=== PATIENT | male | born 1955 | race Caucasian/White ===

== ENCOUNTER 2018-06-21 15:55 | Inpatient (IN) | payer SELFPAY ==
[~2018-06-21] VITALS: Ht 190.5 cm; Wt 113.9 kg
[~2018-06-21 15:55] MED LIST: ALBU2.5V8 INH; AMLO5TAB10 PO; CETI10TA22 PO; CLOT15CR3 TP; FLUT9.9S NS; MONT10TA9 PO; TADA5TAB PO; VARE1TAB21 PO
[2018-06-21] MEDS ORDERED: methylPREDNISolone SOD SUCC PF 125 MG/2 ML VIAL. IV ONE (16:15)
[2018-06-21] MEDS ORDERED: IPRATRPIUM/ALBUTEROL 0.5/2.5MG 3 ML NEBU. NEB ONE (16:15)
[2018-06-21 16:20] LABS: BASO % 0 % (0-3); EOS % 0 % (0-3); HEMATOCRIT 50.3 % (39.0-53.0); HEMOGLOBIN 16.1 g/dL (13.0-17.5); LYMPH # 0.6 x10^3/uL (1.0-4.8); LYMPH % 7 % (24-48); MEAN CORPUSCULAR HEMOGLOBIN 32 pg (25-35); MEAN CORPUSCULAR HGB CONC 32 g/dL (31-37); MEAN CORPUSCULAR VOLUME 99 fL (79-100); MONO # 0.5 x10^3/uL (0.0-1.1); MONO % 5 % (0-9); NEUT # 8.1 x10^3uL (1.8-7.7); NEUT % 87 % (31-73); PLATELET COUNT 260 x10^3/uL (140-400); RED BLOOD COUNT 5.08 x10^6/uL (4.30-5.70); RED CELL DISTRIBUTION WIDTH 15.5 % (11.5-14.5); WHITE BLOOD COUNT 9.2 x10^3/uL (4.0-11.0)
[2018-06-21 16:33] LABS: CALCIUM 9.4 mg/dL (8.5-10.1); CREATININE 0.9 mg/dL (0.7-1.3); POTASSIUM 4.3 mmol/L (3.5-5.1)
[2018-06-21 16:38] LABS: ALBUMIN 3.6 g/dL (3.4-5.0); ALBUMIN/GLOBULIN RATIO 0.9 (1.0-1.7); TOTAL BILIRUBIN 1.2 mg/dL (0.2-1.0); TOTAL PROTEIN 7.8 g/dL (6.4-8.2)
[2018-06-21 16:44] LABS: % BANDS 2 % (0-9); % BASOS 1 % (0-3); % EOS 1 % (0-5); % LYMPHS 7 % (24-48); % MONOS 2 % (0-10); % MYELOS 1 % (0-0); % SEGS 86 % (35-66)
[2018-06-21 16:48] LABS: INFLUENZA A PATIENT NEGATIVE (NEGATIVE); INFLUENZA B PATIENT NEGATIVE (NEGATIVE)
[2018-06-21 16:48] LABS: PLT ESTIMATE ADEQUATE (ADEQUATE)
--- NOTE | 2018-06-21 17:01 | RAD ---
CHEST AP ONLY 4:43 PM Clinical indications: short of breath COMPARISON: October 14, 2015. Findings: There is a mild increase in the interstitium bilaterally. Cinthia B line's are seen within the left lateral costophrenic angle. The findings are consistent with mild acute interstitial pulmonary edema. No lung consolidation or pleural effusion or pneumothorax is seen. The heart size, pulmonary vasculature, mediastinum and both ever are unremarkable given rotation and AP magnification. Impression: Mild acute interstitial pulmonary edema. Electronically signed by: Antony Arguello MD (06/21/2018 4:58 PM) [facility]
[2018-06-21] MEDS ORDERED: FUROSEMIDE 100 MG/10 ML VIAL. IVP ONE (17:15)
--- NOTE | 2018-06-21 17:43 | PHYS DOC ---
Past Medical History Past Medical History: COPD, Hypertension Past Surgical History: No Surgical History Additional Information: QUIT 1.5 MONTHS AGO Alcohol Use: None Drug Use: None Adult General Chief Complaint Chief Complaint: SHORTNESS OF BREATH HPI HPI 63-year-old male with history of COPD and other medical problems presents from his primary care provider's office today with respiratory distress. Patient states he has progressively been declining over the last 6-8 weeks. However, he states over the last 24 hours he's been unable to even take 2 steps in the house. He does describe orthopnea. He denies any fever chills or sweats. He denies any hematemesis. Not had any chest pain. When he coughs he states occasionally productive however the sputum is clear. Today he showed up at his primary care provider's office and his oxygen saturation was in the mid 70s. Patient was still able to talk in full sentences there and refused an ambulance ride over. She was told that his oxygen saturation should be in the 88% range[] Review of Systems Review of Systems Constitutional: Denies fever or chills [] Eyes: Denies change in visual acuity, redness, or eye pain [] HENT: Denies nasal congestion or sore throat [] Respiratory: Per history of present illness[] Cardiovascular: No additional information not addressed in HPI [] GI: Denies abdominal pain, nausea, vomiting, bloody stools or diarrhea [] : Denies dysuria or hematuria [] Musculoskeletal: Some lower extremity swelling[] Integument: Denies rash or skin lesions [] Neurologic: Denies headache, focal weakness or sensory changes [] Endocrine: Denies polyuria or polydipsia [] All other systems were reviewed and found to be within normal limits, except as documented in this note. Current Medications Current Medications Current Medications Medications (Trade) Dose Ordered Sig/Melina Start Time Stop Time Status Last Admin Dose Admin Albuterol/ Ipratropium (Duoneb) 9 ml 1X ONCE 06/21/18 16:15 06/21/18 16:38 DC 06/21/18 16:16 9 ML Furosemide (Lasix) 80 mg 1X ONCE 06/21/18 17:15 06/21/18 17:18 DC Methylprednisolone Sodium Succinate (SOLU-Medrol 125MG VIAL) 125 mg 1X ONCE 06/21/18 16:15 06/21/18 16:38 DC 06/21/18 16:44 125 MG Allergies Allergies Allergies Coded Allergies Type Severity Reaction Last Updated Verified No Known Drug Allergies 06/21/18 No Physical Exam Physical Exam Constitutional: Well developed, well nourished, moderate respiratory distress, non-toxic appearance. [] HENT: Normocephalic, atraumatic, bilateral external ears normal, oropharynx moist, no oral exudates, nose normal. [] Eyes: PERRLA, EOMI, conjunctiva normal, no discharge. [] Neck: Normal range of motion, no tenderness, supple, no stridor. [] Cardiovascular: Scattered wheezes throughout both lungs with bibasilar rales[] Lungs & Thorax: Bilateral breath sounds clear to auscultation [] Abdomen: Bowel sounds normal, soft, no tenderness, no masses, no pulsatile masses. [] Skin: Warm, dry, no erythema, no rash. [] Back: No tenderness, no CVA tenderness. [] Extremities: Trace lower extremity edema. [] Neurologic: Alert and oriented X 3, normal motor function, normal sensory function, no focal deficits noted. [] Psychologic: Anxious[] Current Patient Data Vital Signs Vital Signs Date Time Temp Pulse Resp B/P (MAP) Pulse Ox O2 Delivery O2 Flow Rate FiO2 06/21/18 16:32 98.6 112 32 180/105 (130) 79 Nasal Cannula 4.0 98.6 Lab Values Laboratory Tests Test 06/21/18 16:12 06/21/18 16:19 White Blood Count 9.2 x10^3/uL (4.0-11.0) Red Blood Count 5.08 x10^6/uL (4.30-5.70) Hemoglobin 16.1 g/dL (13.0-17.5) Hematocrit 50.3 % (39.0-53.0) Mean Corpuscular Volume 99 fL (79-100) Mean Corpuscular Hemoglobin 32 pg (25-35) Mean Corpuscular Hemoglobin Concent 32 g/dL (31-37) Red Cell Distribution Width 15.5 % (11.5-14.5) H Platelet Count 260 x10^3/uL (140-400) Neutrophils (%) (Auto) 87 % (31-73) H Lymphocytes (%) (Auto) 7 % (24-48) L Monocytes (%) (Auto) 5 % (0-9) Eosinophils (%) (Auto) 0 % (0-3) Basophils (%) (Auto) 0 % (0-3) Neutrophils # (Auto) 8.1 x10^3uL (1.8-7.7) H Lymphocytes # (Auto) 0.6 x10^3/uL (1.0-4.8) L Monocytes # (Auto) 0.5 x10^3/uL (0.0-1.1) Eosinophils # (Auto) 0.0 x10^3/uL (0.0-0.7) Basophils # (Auto) 0.0 x10^3/uL (0.0-0.2) Segmented Neutrophils % 86 % (35-66) H Band Neutrophils % 2 % (0-9) Lymphocytes % 7 % (24-48) L Monocytes % 2 % (0-10) Eosinophils % 1 % (0-5) Basophils % 1 % (0-3) Myelocytes % 1 % (0-0) H Platelet Estimate Adequate (ADEQUATE) Sodium Level 146 mmol/L (136-145) H Potassium Level 4.3 mmol/L (3.5-5.1) Chloride Level 103 mmol/L (98-107) Carbon Dioxide Level 38 mmol/L (21-32) H Anion Gap 5 (6-14) L Blood Urea Nitrogen 20 mg/dL (8-26) Creatinine 0.9 mg/dL (0.7-1.3) Estimated GFR (Cockcroft-Gault) 85.0 BUN/Creatinine Ratio 22 (6-20) H Glucose Level 121 mg/dL (70-99) H Lactic Acid Level 1.2 mmol/L (0.4-2.0) Calcium Level 9.4 mg/dL (8.5-10.1) Total Bilirubin 1.2 mg/dL (0.2-1.0) H Aspartate Amino Transferase (AST) 26 U/L (15-37) Alanine Aminotransferase (ALT) 41 U/L (16-63) Alkaline Phosphatase 106 U/L (46-116) Troponin I Quantitative 0.133 ng/mL (0.000-0.055) QU-Htu-I-Type Natriuretic Peptide 2435 pg/mL (0-124) H Total Protein 7.8 g/dL (6.4-8.2) Albumin 3.6 g/dL (3.4-5.0) Albumin/Globulin Ratio 0.9 (1.0-1.7) L Influenza Type A Antigen Negative (NEGATIVE) Influenza Type B Antigen Negative (NEGATIVE) Laboratory Tests 06/21/18 16:12 Laboratory Tests 06/21/18 16:12 EKG EKG EKG: Sinus rhythm right bundle branch block repolarization abnormality no obvious ischemic ST-T changes[] Radiology/Procedures Radiology/Procedures [] Impressions: PROCEDURE: CHEST AP ONLY CHEST AP ONLY 4:43 PM Clinical indications: short of breath COMPARISON: October 14, 2015. Findings: There is a mild increase in the interstitium bilaterally. Cinthia B line's are seen within the left lateral costophrenic angle. The findings are consistent with mild acute interstitial pulmonary edema. No lung consolidation or pleural effusion or pneumothorax is seen. The heart size, pulmonary vasculature, mediastinum and both ever are unremarkable given rotation and AP magnification. Impression: Mild acute interstitial pulmonary edema. Course & Med Decision Making Course & Med Decision Making Pertinent Labs and Imaging studies reviewed. (See chart for details) [ED course: Evaluation reveals a 63-year-old male in moderate respiratory distress. His oxygen saturation was in the low 80s. We did put him on 6 L and got him to the low 90s but he decreased again. I believe that he has a mixed picture. I certainly feel that he has some component of COPD and was treated with back to back DuoNeb's and 125 Solu-Medrol. However his chest x-ray shows interstitial edema and his BNP is greater than 2400. Patient was also given 80 of Lasix to initiate diuresis. I spoke with Dr. Cantu who agreed to accept the patient for admission. We will also consult pulmonary and cardiology. CRITICAL CARE: Time spent was 35 minutes. This includes medical management, evaluation, reevaluation, discussion with consultants and family. Critical Care does NOT include time spent on separately billed procedures. ] Dragon Disclaimer Dragon Disclaimer This electronic medical record was generated, in whole or in part, using a voice recognition dictation system. Departure Departure Impression: Primary Impression: CHF exacerbation Additional Impression: COPD exacerbation Disposition: ADMITTED INPATIENT Admitting Physician: Patrick Cantu Condition: GUARDED Referrals: PATRICK CANTU MD (PCP) Problem Qualifiers Primary Impression: CHF exacerbation Heart failure type: systolic Qualified Codes: I50.23 - Acute on chronic systolic (congestive) heart failure WILD SUMNER DO Jun 21, 2018 17:43
--- NOTE | 2018-06-21 19:35 | EKG ---
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
[2018-06-21 19:45] VITALS: BP 135/87
[2018-06-21] MEDS ORDERED: ASCO500C9 PO (19:48)
[2018-06-21] MEDS ORDERED: MULT1TAB52 PO (19:48)
[2018-06-21] MEDS ORDERED: IBUP-1060 PO (19:48)
[2018-06-21] MEDS ORDERED: GUAI600T79 PO (19:48)
[2018-06-21] MEDS ORDERED: OMEG1CAP6 PO (19:48)
[2018-06-21] MEDS ORDERED: FUROSEMIDE 40 MG/4 ML VIAL. IVP ONE (20:00)
[2018-06-21 20:07] VITALS: BP 146/101
[2018-06-21] MEDS ORDERED: ALBUTEROL SULFATE 2.5 MG/3 ML NEBU. NEB PRN (21:00)
[2018-06-21] MEDS: VARENICLINE 0.5 MG TABLET. PO SCH (22:07)
[2018-06-21] MEDS: MONTELUKAST SODIUM 10 MG TABLET. PO SCH (22:07)
[2018-06-21] MEDS: ENOXAPARIN 40 MG/0.4 ML SYRINGE. SQ SCH (22:09)
[2018-06-21 23:23] VITALS: BP 121/81
[2018-06-22 03:04] VITALS: BP 139/82
[2018-06-22 03:54] LABS: BASO % 0 % (0-3); EOS % 0 % (0-3); HEMATOCRIT 49.1 % (39.0-53.0); HEMOGLOBIN 15.7 g/dL (13.0-17.5); LYMPH # 0.4 x10^3/uL (1.0-4.8); LYMPH % 5 % (24-48); MEAN CORPUSCULAR HEMOGLOBIN 32 pg (25-35); MEAN CORPUSCULAR HGB CONC 32 g/dL (31-37); MEAN CORPUSCULAR VOLUME 99 fL (79-100); MONO # 0.3 x10^3/uL (0.0-1.1); MONO % 4 % (0-9); NEUT # 6.9 x10^3uL (1.8-7.7); NEUT % 91 % (31-73); PLATELET COUNT 240 x10^3/uL (140-400); RED BLOOD COUNT 4.96 x10^6/uL (4.30-5.70); RED CELL DISTRIBUTION WIDTH 15.4 % (11.5-14.5); WHITE BLOOD COUNT 7.5 x10^3/uL (4.0-11.0)
[2018-06-22 04:17] LABS: ALBUMIN 3.4 g/dL (3.4-5.0); ALBUMIN/GLOBULIN RATIO 0.9 (1.0-1.7); CALCIUM 8.9 mg/dL (8.5-10.1); CREATININE 0.9 mg/dL (0.7-1.3); POTASSIUM 4.7 mmol/L (3.5-5.1); TOTAL BILIRUBIN 1.1 mg/dL (0.2-1.0); TOTAL PROTEIN 7.2 g/dL (6.4-8.2)
[2018-06-22 07:00] VITALS: BP 131/98
[2018-06-22] MEDS: IPRATRPIUM/ALBUTEROL 0.5/2.5MG 3 ML NEBU. NEB SCH ×4 (07:42→19:35)
--- NOTE | 2018-06-22 07:56 | RAD ---
Bilateral lower extremity venous doppler ultrasound History: Bilateral lower extremity swelling, CHF Comparison: None Findings: Multiple grayscale, color, and duplex spectral analysis sonographic images were acquired of the bilateral lower extremity veins to evaluate for the presence of DVT. There is normal phasicity. Normal compression, color-flow, and augmentation is demonstrated from the bilateral common femoral to the popliteal veins. There is normal color flow of the proximal greater saphenous and profunda femoris veins. There is normal color flow of segments of the calf veins. Impression: 1. There is no evidence of deep venous thrombosis from the bilateral common femoral to popliteal veins. Electronically signed by: Carlos Calvillo MD (06/22/2018 7:53 AM) [id number]
[2018-06-22] MEDS: VARENICLINE 0.5 MG TABLET. PO SCH (08:32)
[2018-06-22] MEDS: CETIRIZINE HCL 10 MG TABLET. PO SCH (08:32)
[2018-06-22] MEDS: MULTIVITAMIN with MINERAL TABLET. PO SCH (08:32)
[2018-06-22] MEDS: amLODIPine BESYLATE 5 MG TABLET PO SCH (08:33)
[2018-06-22] MEDS: FLUTICASONE 50MCG/NASAL SPRAY 16GM BOTTLE. NS SCH (08:33)
[2018-06-22] MEDS ORDERED: OMEGA-3 FATTY ACIDS/FISH OIL 1,000 MG CAPSULE. PO SCH (09:00)
[2018-06-22] MEDS ORDERED: ASCORBIC ACID 500 MG TABLET PO SCH (09:00)
[2018-06-22] MEDS ORDERED: CLOTRIMAZOLE/BETAMETH 1%-0.05% TOPICAL CREAM 15GM TUBE. TP SCH (09:00)
[2018-06-22 09:07] LABS: CHOLESTEROL/HDL RATIO 2.1
--- NOTE | 2018-06-22 09:19 | PDOC2 ---
JUNIOR PAEZ BOTTLE CARRIER 06/22/18 0919: CARDIAC CONSULT DATE OF CONSULT Date of Consult DATE: 06/22/18 TIME: 09:14 REASON FOR CONSULT Reason for Consult: CHF REFERRING PHYSICIAN Referring Physician: Dr. Stacy SOURCE Source: Chart review, Patient HISTORY OF PRESENT ILLNESS HISTORY OF PRESENT ILLNESS This is a 63 yo male who presented from Primary Care office secondary to shortness of breath and hypoxia. Oxygen saturation reportedly in the 70's and patient was referred to the ED for further evaluation and treatment. Patient reports history of COPD and chronic shortness of breath. Does not routinely go to see his primary care provide. Significant other at bedside reports he generally refuses to go to the doctor or follow up. Ran out of all medications about 2 weeks ago. Has been significantly short of breath with minimal exertion for the last couple weeks. Associated with orthopnea and LE edema. Worse the last week. Has been sleeping sitting up on the couch for the last week. Denies any chest pain, palpitations, dizziness, or diaphoresis. Quit smoking about a month ago due to dyspnea. PAST MEDICAL HISTORY Cardiovascular: HTN Pulmonary: COPD CENTRAL NERVOUS SYSTEM: Other (no pertinent positives ) GI: No pertinent hx Heme/Onc: No pertinent hx Hepatobiliary: No pertinent hx Psych: No pertinent hx Musculoskeletal: low back pain Rheumatologic: No pertinent hx Infectious disease: No pertinent hx ENT: No pertinent hx Renal/: No pertinent hx Endocrine: No pertinent hx PAST SURGICAL HISTORY Past Surgical History: No pertinent history FAMILY HISTORY Family History: Chronic Bronchitis, Hypertension SOCIAL HISTORY Smoke: Quit (1 month ago) ALCOHOL: none Drugs: None Lives: with Family CURRENT MEDICATIONS CURRENT MEDICATIONS Current Medications Medications (Trade) Dose Ordered Sig/Melina Route PRN Reason Start Time Stop Time Status Last Admin Dose Admin Albuterol/ Ipratropium (Duoneb) 9 ml 1X ONCE NEB 06/21/18 16:15 06/21/18 16:38 DC 06/21/18 16:16 Methylprednisolone Sodium Succinate (SOLU-Medrol 125MG VIAL) 125 mg 1X ONCE IV 06/21/18 16:15 06/21/18 16:38 DC 06/21/18 16:44 Furosemide (Lasix) 80 mg 1X ONCE IVP 06/21/18 20:00 06/21/18 20:01 DC 06/21/18 20:05 Albuterol/ Ipratropium (Duoneb) 3 ml RTQID NEB 06/22/18 08:00 06/22/18 07:42 Enoxaparin Sodium (Lovenox 40mg Syringe) 40 mg Q24H SQ 06/21/18 21:00 06/21/18 22:09 Amlodipine Besylate (Norvasc) 5 mg DAILY PO 06/22/18 09:00 06/22/18 08:33 Cetirizine HCl (ZyrTEC) 10 mg DAILY PO 06/22/18 09:00 06/22/18 08:32 Betamethasone/ Clotrimazole (Lotrisone) 1 jordan BID TP 06/22/18 09:00 06/22/18 08:33 Guaifenesin (Mucinex) 600 mg BID PO 06/21/18 22:00 06/22/18 08:32 Fish Oil (Fish Oil) 1,000 mg DAILY PO 06/22/18 09:00 06/22/18 08:32 Ascorbic Acid (Vitamin C) 1,000 mg DAILY PO 06/22/18 09:00 06/22/18 08:32 Fluticasone Propionate (Flonase) 2 spray DAILY NS 06/22/18 09:00 06/22/18 08:33 Montelukast Sodium (Singulair) 10 mg QHS PO 06/21/18 22:00 06/21/18 22:07 Multivitamins (Thera M Plus) 1 tab DAILY PO 06/22/18 09:00 06/22/18 08:32 Varenicline (Chantix) 1 mg BID PO 06/21/18 22:00 06/22/18 08:32 ALLERGIES ALLERGIES: Coded Allergies: No Known Drug Allergies (Unverified , 06/21/18) ROS Review of System 14 point ROS conducted with pertinent positives noted above in HPI. PHYSICAL EXAM General: Alert, Oriented X3, Cooperative, No acute distress HEENT: Atraumatic, Mucous membr. moist/pink Lungs: Clear to auscultation, Other (diminished throughout. Fine bibasilar crackles; on BiPAP) Heart: Regular rate, Other (distant heart tones) Abdomen: Soft, No tenderness Extremities: Other (1+ bilateral LE edema. ) Skin: Other (Bilateral LE erythema) Neuro: Normal speech, Sensation intact Psych/Mental Status: Mental status NL, Mood NL MUSCULOSKELETAL: Osteoarthritic changes both hands VITALS VITALS Vital Signs Date Time Temp Pulse Resp B/P (MAP) Pulse Ox O2 Delivery O2 Flow Rate FiO2 06/22/18 08:33 97 131/98 06/22/18 07:53 Bi-pap 06/22/18 07:42 94 5.0 06/22/18 07:00 98.1 20 98.1 LABS Lab: Laboratory Tests Test 06/21/18 16:12 06/21/18 16:19 06/21/18 22:10 06/22/18 03:45 White Blood Count 9.2 x10^3/uL (4.0-11.0) 7.5 x10^3/uL (4.0-11.0) Red Blood Count 5.08 x10^6/uL (4.30-5.70) 4.96 x10^6/uL (4.30-5.70) Hemoglobin 16.1 g/dL (13.0-17.5) 15.7 g/dL (13.0-17.5) Hematocrit 50.3 % (39.0-53.0) 49.1 % (39.0-53.0) Mean Corpuscular Volume 99 fL (79-100) 99 fL (79-100) Mean Corpuscular Hemoglobin 32 pg (25-35) 32 pg (25-35) Mean Corpuscular Hemoglobin Concent 32 g/dL (31-37) 32 g/dL (31-37) Red Cell Distribution Width 15.5 % (11.5-14.5) 15.4 % (11.5-14.5) Platelet Count 260 x10^3/uL (140-400) 240 x10^3/uL (140-400) Neutrophils (%) (Auto) 87 % (31-73) 91 % (31-73) Lymphocytes (%) (Auto) 7 % (24-48) 5 % (24-48) Monocytes (%) (Auto) 5 % (0-9) 4 % (0-9) Eosinophils (%) (Auto) 0 % (0-3) 0 % (0-3) Basophils (%) (Auto) 0 % (0-3) 0 % (0-3) Neutrophils # (Auto) 8.1 x10^3uL (1.8-7.7) 6.9 x10^3uL (1.8-7.7) Lymphocytes # (Auto) 0.6 x10^3/uL (1.0-4.8) 0.4 x10^3/uL (1.0-4.8) Monocytes # (Auto) 0.5 x10^3/uL (0.0-1.1) 0.3 x10^3/uL (0.0-1.1) Eosinophils # (Auto) 0.0 x10^3/uL (0.0-0.7) 0.0 x10^3/uL (0.0-0.7) Basophils # (Auto) 0.0 x10^3/uL (0.0-0.2) 0.0 x10^3/uL (0.0-0.2) Segmented Neutrophils % 86 % (35-66) Band Neutrophils % 2 % (0-9) Lymphocytes % 7 % (24-48) Monocytes % 2 % (0-10) Eosinophils % 1 % (0-5) Basophils % 1 % (0-3) Myelocytes % 1 % (0-0) Platelet Estimate Adequate (ADEQUATE) Sodium Level 146 mmol/L (136-145) 142 mmol/L (136-145) Potassium Level 4.3 mmol/L (3.5-5.1) 4.7 mmol/L (3.5-5.1) Chloride Level 103 mmol/L (98-107) 99 mmol/L (98-107) Carbon Dioxide Level 38 mmol/L (21-32) 36 mmol/L (21-32) Anion Gap 5 (6-14) 7 (6-14) Blood Urea Nitrogen 20 mg/dL (8-26) 19 mg/dL (8-26) Creatinine 0.9 mg/dL (0.7-1.3) 0.9 mg/dL (0.7-1.3) Estimated GFR (Cockcroft-Gault) 85.0 85.0 BUN/Creatinine Ratio 22 (6-20) 21 (6-20) Glucose Level 121 mg/dL (70-99) 144 mg/dL (70-99) Lactic Acid Level 1.2 mmol/L (0.4-2.0) Calcium Level 9.4 mg/dL (8.5-10.1) 8.9 mg/dL (8.5-10.1) Total Bilirubin 1.2 mg/dL (0.2-1.0) 1.1 mg/dL (0.2-1.0) Aspartate Amino Transf (AST/SGOT) 26 U/L (15-37) 28 U/L (15-37) Alanine Aminotransferase (ALT/SGPT) 41 U/L (16-63) 35 U/L (16-63) Alkaline Phosphatase 106 U/L (46-116) 92 U/L (46-116) Troponin I Quantitative 0.133 ng/mL (0.000-0.055) 0.115 ng/mL (0.000-0.055) 0.097 ng/mL (0.000-0.055) XI-Cen-S-Type Natriuretic Peptide 2435 pg/mL (0-124) Total Protein 7.8 g/dL (6.4-8.2) 7.2 g/dL (6.4-8.2) Albumin 3.6 g/dL (3.4-5.0) 3.4 g/dL (3.4-5.0) Albumin/Globulin Ratio 0.9 (1.0-1.7) 0.9 (1.0-1.7) Influenza Type A Antigen Negative (NEGATIVE) Influenza Type B Antigen Negative (NEGATIVE) Magnesium Level 2.0 mg/dL (1.8-2.4) Triglycerides Level 39 mg/dL (0-150) Cholesterol Level 127 mg/dL (0-200) LDL Cholesterol, Calculated 59 mg/dL (0-100) VLDL Cholesterol, Calculated 8 mg/dL (0-40) Non-HDL Cholesterol Calculated 67 mg/dL (0-129) HDL Cholesterol 60 mg/dL (40-60) Cholesterol/HDL Ratio 2.1 Thyroid Stimulating Hormone (TSH) 0.470 uIU/mL (0.358-3.74) ASSESSMENT/PLAN ASSESSMENT/PLAN 1. Acute on chronic hypoxic respiratory failure; secondary to acute HF and AE COPD. requiring BiPAP 2. Acute on chronic HF; CXR with pulm edema. Good UOP with IV Lasix in ED 3. Mild troponin elevation; peak 0.133. Most probably type II, demand ischemia in the setting of acute respiratory/heart failure. CP free 4. AE COPD 5. Malignant hypertension; now controlled 6. Noncompliance 7. Tobaccoism; recently quit Recommendations Add ASA Obtain echo to assess LV systolic function Diuresis with monitoring of labs Follow pulmonary recs Reinforced importance of medical compliance and follow up. Further recommendations pending echo BERNARD BLANDON MD 06/22/18 2658: CARDIAC CONSULT ASSESSMENT/PLAN ASSESSMENT/PLAN Pt. seen and examined. Agree with above [employer]STATE [employer]ER note. It is unclear if his COPD or diastolic HF caused this acute exacerbation Continue treatment of both. Needs further aggressive diuresis. Outpt stress testing. thanks. JUNIOR PAEZ APRN Jun 22, 2018 09:19 BERNARD BLANDON MD Jun 22, 2018 23:09
[2018-06-22 10:58] VITALS: BP 115/77
[2018-06-22] MEDS: ASPIRIN ENTERIC COATED 81 MG TABLET.DR. PO SCH (11:03)
[2018-06-22] MEDS: FUROSEMIDE 40 MG/4 ML VIAL. IVP SCH (11:03)
--- NOTE | 2018-06-22 11:26 | PDOC ---
Provider Note Provider Note H&P dictated. [phone] PATRICK CANTU MD Jun 22, 2018 11:26
--- NOTE | 2018-06-22 11:42 | CARD ---
MR#: [id number] Date of Study: 06/22/2018 Ordering Physician: AGGIE FELTON, Referring Physician: PATRICK CANTU, Tech: Teresa Sweet APPROVED REPORT EXAM: Two-dimensional and M-mode echocardiogram with Doppler and color Doppler. Other Information Quality : FairHR: 95bpm Rhythm : NSRTechnically limited study due to COPD INDICATION Dyspnea Congestive Heart Failure RISK FACTORS Hypertension 2D DIMENSIONS Left Atrium(2D)4.1 (1.6-4.0cm)IVSd1.4 (0.7-1.1cm) Aortic Root(2D)3.8 (2.0-3.7cm)LVDd5.1 (3.9-5.9cm) LVOT Diameter2.2 (1.8-2.4cm)PWd1.3 (0.7-1.1cm) LVDs3.8 (2.5-4.0cm)FS (%) 25.5 % SV61.4 mlLVEF(%)50.0 (>50%) Aortic Valve AoV Peak Hernan.140.2cm/sAoV VTI24.3cm AO Peak GR.7.9mmHgLVOT VTI 15.66cm AO Mean GR.4mmHg Mitral Valve MV E Ixquvdpi97.6cm/sMV E Peak Gr.61mmHg MV DECEL [id number] A Zrblydnk117.7cm/s E/A Ratio0.9 TDI Lateral E' P. V8.69cm/sMedial E' P. V7.08cm/s E/Lateral E'10.2E/Medial E'12.5 Tricuspid Valve TR P. Sextmxlh705ja/sRAP [id number] TR Peak Gr.32mmHg Pulmonary Vein S1 Cjcjozbl11.2cm/sS2 Yxwmghuv82.89cm/s D2 Ypxmmpjw07.9cm/sPVa fgwfcojo66bcov LEFT VENTRICLE The left ventricle is normal size. There is moderate concentric left ventricular hypertrophy. The lef t ventricualar systolic funtion is normal. The ejection fraction is estimated at 55%. There is normal LV segmental wall motion. Transmitral Doppler flow pattern is Grade I-abnormal relaxation pattern. RIGHT VENTRICLE The right ventricle is mildly to moderately dilated. There is normal right ventricular wall thickness . Systolic function is mildly reduced. ATRIA The left atrium size is normal. The right atrium is moderately dilated. The interatrial septum is int act with no evidence for an atrial septal defect or patent foramen ovale as noted on 2-D or Doppler i maging. AORTIC VALVE The aortic valve is normal in structure and function. Doppler and Color Flow revealed no significant aortic regurgitation. There is no significant aortic valvular stenosis. MITRAL VALVE The mitral valve is normal in structure and function. There is no evidence of mitral valve prolapse. There is no mitral valve stenosis. TRICUSPID VALVE The tricuspid valve is normal in structure and function. Doppler and Color Flow revealed trace tricus pid valve regurgitation noted with an estimated PAP of 47 mmHg. Doppler and Color Flow revealed moder ate pulmonary hypertension. There is no tricuspid valve stenosis. PULMONIC VALVE The pulmonic valve is not well visualized. Doppler and Color Flow revealed no pulmonic valvular regur gitation. GREAT VESSELS The aortic root is normal in size. The IVC is dilated and collapses <50% with inspiration. PERICARDIAL EFFUSION There is no evidence of significant pericardial effusion. Critical Notification Critical Value: No <Conclusion> Technically difficult study. The left ventricualar systolic funtion is normal. The ejection fraction is estimated at 55%. There is normal LV segmental wall motion. Trace tricuspid valve regurgitation noted with an estimated PAP of 47 mmHg. There is no evidence of significant pericardial effusion. Signed by : Rigo Cruz, Electronically Approved : 06/22/2018 11:40:56
--- NOTE | 2018-06-22 11:47 | NUR ---
GABBY responding to a referral regarding needs oxygen, CPAP at home, unable to afford. Spoke with pt and significant at bedside. Pt reported he does not have health insurance. SW informed pt it might cost him around $200/month to have 02 at home depending 02 needs and will have to provide [employer] company with his credit card number for first payment. Pt reported he is able to pay for 02. Pt will need 6 min walk to [facility] 02 need. RN notified. Will continue to follow.
--- NOTE | 2018-06-22 11:57 | HP ---
ADMIT DATE: 06/21/2018 HISTORY OF PRESENT ILLNESS: This 63-year-old male who has not been seen in the office for, maybe, a couple of years, showed up in the office saying that he was much more short of breath. In the office, his O2 sats were in 70s and up to 75%. He was placed on oxygen. The patient states that he has not been using any oxygen or CPAP at home. He has not been taking any medications. I tried to send the patient to the Emergency Room via ambulance, but the patient decided to go with his girlfriend in the car. In the Emergency Room, the patient was noted to be hypoxic and chest x-ray showed acute pulmonary edema, and the patient was placed on oxygen with BiPAP and admitted for further evaluation and management. SYSTEMS REVIEW: At present time, the patient does admit to feeling better after getting oxygen. He has been admitting symptoms such as weakness, dyspnea, has cough with clear mucus. Denies any swelling of the legs, abdominal pain, nausea, vomiting, diarrhea, constipation. He is not a good historian, likely because of his hypoxia in the office. Other systems reviewed and are negative. PAST MEDICAL HISTORY: The patient was last admitted here in 2016. He is known to have history of COPD, dyspnea, noncompliance, hypertension, hypoxic respiratory failure, chronic obstructive pulmonary disease, hypertension, fungal skin infection, COPD, likely obstructive sleep apnea. ALLERGIES: None known any. MEDICATIONS: None at home. FAMILY HISTORY: Father had cancer of the lung. SOCIAL HISTORY: Past history of smoking, quit about 1-1/2 months ago. No history of alcoholism or drug use. PAST SURGICAL HISTORY: No significant surgery. PHYSICAL EXAMINATION: VITAL SIGNS: Temperature 98.1, pulse 97 per minute, respirations 20 per minute, blood pressure 131/98 mmHg. GENERAL: The patient is on BiPAP, in mild respiratory distress. EYES: Pupils reacting to light. Conjunctivae pale. Sclerae muddy. HEENT: Unremarkable. NECK: Supple. JVP normal. No thyromegaly. Trachea midline. LUNGS: Decreased breath sounds at bases. Moderate tachypnea. CARDIOVASCULAR: S1, S2 regular. ABDOMEN: Soft, nontender, no guarding, no rigidity. Abdomen is obese. Bowel sounds present. RECTAL: Not done. EXTREMITIES: No edema, no cyanosis, no calf tenderness. CENTRAL NERVOUS SYSTEM: Alert, forgetful, weak. No acute changes noted. LABORATORY FINDINGS: Sodium 142, potassium 4.7, BUN is 19, creatinine 0.9, glucose 144, troponin 0.115 and 0.097, albumin is 3.4, magnesium is 2. TSH is 0.470. LDL cholesterol is 59, HDL 60. WBC count 9.2, hemoglobin 16.1, platelet count is 260,000. IMPRESSION: 1. Acute hypoxic respiratory failure. 2. Acute pulmonary edema, multifactorial, likely due to acute diastolic heart failure. 3. Likely pulmonary hypertension. 4. Chronic obstructive pulmonary disease exacerbation. 5. Obesity. 6. Hypertension. 7. Mixed hyperlipidemia. 8. The patient has a skin candidiasis, which is quite extensive in both groins as well as in lower extremities and back. PLAN: Consult Dr. Guallpa for pulmonary evaluation and management, Dr. Ortega for cardiology evaluation and management. The patient is now on BiPAP. The patient was given IV Lasix in the Emergency Room. He is slowly improving. Condition and treatment discussed with the patient and his girlfriend. Start nystatin powder to be applied topically to the areas in groin and because of the extensive skin fungal infection, I will put him on oral Diflucan. Side effects including those on the heart discussed with the patient and the family. Prognosis of this patient is extremely poor. I have reiterated to him about the importance of keeping his oxygen saturation above 90% and take his medications and use CPAP regularly. For details, please review the orders. PATRICK CANTU MD DR: MAVERICK/clifford JOB#: [id number] / [id number]
[2018-06-22] MEDS ORDERED: FLUCONAZOLE 100 MG TABLET. PO SCH (12:00)
[2018-06-22] MEDS: NYSTATIN TOPICAL POWDER 15GM BOTTLE. TP SCH ×2 (12:02→22:35)
[2018-06-22 15:00] VITALS: BP 121/88
--- NOTE | 2018-06-22 15:29 | PDOC ---
PULMONARY PROGRESS NOTES Vitals Vital Signs Date Time Temp Pulse Resp B/P (MAP) Pulse Ox O2 Delivery O2 Flow Rate FiO2 06/22/18 15:07 94 BiPAP/CPAP 06/22/18 10:58 97.9 86 20 115/77 (90) 97.9 06/22/18 07:42 5.0 Labs Laboratory Tests Test 06/21/18 16:12 06/21/18 16:19 06/21/18 22:10 06/22/18 03:45 White Blood Count 9.2 x10^3/uL (4.0-11.0) 7.5 x10^3/uL (4.0-11.0) Red Blood Count 5.08 x10^6/uL (4.30-5.70) 4.96 x10^6/uL (4.30-5.70) Hemoglobin 16.1 g/dL (13.0-17.5) 15.7 g/dL (13.0-17.5) Hematocrit 50.3 % (39.0-53.0) 49.1 % (39.0-53.0) Mean Corpuscular Volume 99 fL (79-100) 99 fL (79-100) Mean Corpuscular Hemoglobin 32 pg (25-35) 32 pg (25-35) Mean Corpuscular Hemoglobin Concent 32 g/dL (31-37) 32 g/dL (31-37) Red Cell Distribution Width 15.5 % (11.5-14.5) 15.4 % (11.5-14.5) Platelet Count 260 x10^3/uL (140-400) 240 x10^3/uL (140-400) Neutrophils (%) (Auto) 87 % (31-73) 91 % (31-73) Lymphocytes (%) (Auto) 7 % (24-48) 5 % (24-48) Monocytes (%) (Auto) 5 % (0-9) 4 % (0-9) Eosinophils (%) (Auto) 0 % (0-3) 0 % (0-3) Basophils (%) (Auto) 0 % (0-3) 0 % (0-3) Neutrophils # (Auto) 8.1 x10^3uL (1.8-7.7) 6.9 x10^3uL (1.8-7.7) Lymphocytes # (Auto) 0.6 x10^3/uL (1.0-4.8) 0.4 x10^3/uL (1.0-4.8) Monocytes # (Auto) 0.5 x10^3/uL (0.0-1.1) 0.3 x10^3/uL (0.0-1.1) Eosinophils # (Auto) 0.0 x10^3/uL (0.0-0.7) 0.0 x10^3/uL (0.0-0.7) Basophils # (Auto) 0.0 x10^3/uL (0.0-0.2) 0.0 x10^3/uL (0.0-0.2) Segmented Neutrophils % 86 % (35-66) Band Neutrophils % 2 % (0-9) Lymphocytes % 7 % (24-48) Monocytes % 2 % (0-10) Eosinophils % 1 % (0-5) Basophils % 1 % (0-3) Myelocytes % 1 % (0-0) Platelet Estimate Adequate (ADEQUATE) Sodium Level 146 mmol/L (136-145) 142 mmol/L (136-145) Potassium Level 4.3 mmol/L (3.5-5.1) 4.7 mmol/L (3.5-5.1) Chloride Level 103 mmol/L (98-107) 99 mmol/L (98-107) Carbon Dioxide Level 38 mmol/L (21-32) 36 mmol/L (21-32) Anion Gap 5 (6-14) 7 (6-14) Blood Urea Nitrogen 20 mg/dL (8-26) 19 mg/dL (8-26) Creatinine 0.9 mg/dL (0.7-1.3) 0.9 mg/dL (0.7-1.3) Estimated GFR (Cockcroft-Gault) 85.0 85.0 BUN/Creatinine Ratio 22 (6-20) 21 (6-20) Glucose Level 121 mg/dL (70-99) 144 mg/dL (70-99) Lactic Acid Level 1.2 mmol/L (0.4-2.0) Calcium Level 9.4 mg/dL (8.5-10.1) 8.9 mg/dL (8.5-10.1) Total Bilirubin 1.2 mg/dL (0.2-1.0) 1.1 mg/dL (0.2-1.0) Aspartate Amino Transf (AST/SGOT) 26 U/L (15-37) 28 U/L (15-37) Alanine Aminotransferase (ALT/SGPT) 41 U/L (16-63) 35 U/L (16-63) Alkaline Phosphatase 106 U/L (46-116) 92 U/L (46-116) Troponin I Quantitative 0.133 ng/mL (0.000-0.055) 0.115 ng/mL (0.000-0.055) 0.097 ng/mL (0.000-0.055) WN-Nqo-I-Type Natriuretic Peptide 2435 pg/mL (0-124) Total Protein 7.8 g/dL (6.4-8.2) 7.2 g/dL (6.4-8.2) Albumin 3.6 g/dL (3.4-5.0) 3.4 g/dL (3.4-5.0) Albumin/Globulin Ratio 0.9 (1.0-1.7) 0.9 (1.0-1.7) Influenza Type A Antigen Negative (NEGATIVE) Influenza Type B Antigen Negative (NEGATIVE) Magnesium Level 2.0 mg/dL (1.8-2.4) Triglycerides Level 39 mg/dL (0-150) Cholesterol Level 127 mg/dL (0-200) LDL Cholesterol, Calculated 59 mg/dL (0-100) VLDL Cholesterol, Calculated 8 mg/dL (0-40) Non-HDL Cholesterol Calculated 67 mg/dL (0-129) HDL Cholesterol 60 mg/dL (40-60) Cholesterol/HDL Ratio 2.1 Thyroid Stimulating Hormone (TSH) 0.470 uIU/mL (0.358-3.74) Laboratory Tests Test 06/21/18 16:12 06/21/18 16:19 06/21/18 22:10 06/22/18 03:45 White Blood Count 9.2 x10^3/uL (4.0-11.0) 7.5 x10^3/uL (4.0-11.0) Red Blood Count 5.08 x10^6/uL (4.30-5.70) 4.96 x10^6/uL (4.30-5.70) Hemoglobin 16.1 g/dL (13.0-17.5) 15.7 g/dL (13.0-17.5) Hematocrit 50.3 % (39.0-53.0) 49.1 % (39.0-53.0) Mean Corpuscular Volume 99 fL (79-100) 99 fL (79-100) Mean Corpuscular Hemoglobin 32 pg (25-35) 32 pg (25-35) Mean Corpuscular Hemoglobin Concent 32 g/dL (31-37) 32 g/dL (31-37) Red Cell Distribution Width 15.5 % (11.5-14.5) 15.4 % (11.5-14.5) Platelet Count 260 x10^3/uL (140-400) 240 x10^3/uL (140-400) Neutrophils (%) (Auto) 87 % (31-73) 91 % (31-73) Lymphocytes (%) (Auto) 7 % (24-48) 5 % (24-48) Monocytes (%) (Auto) 5 % (0-9) 4 % (0-9) Eosinophils (%) (Auto) 0 % (0-3) 0 % (0-3) Basophils (%) (Auto) 0 % (0-3) 0 % (0-3) Neutrophils # (Auto) 8.1 x10^3uL (1.8-7.7) 6.9 x10^3uL (1.8-7.7) Lymphocytes # (Auto) 0.6 x10^3/uL (1.0-4.8) 0.4 x10^3/uL (1.0-4.8) Monocytes # (Auto) 0.5 x10^3/uL (0.0-1.1) 0.3 x10^3/uL (0.0-1.1) Eosinophils # (Auto) 0.0 x10^3/uL (0.0-0.7) 0.0 x10^3/uL (0.0-0.7) Basophils # (Auto) 0.0 x10^3/uL (0.0-0.2) 0.0 x10^3/uL (0.0-0.2) Segmented Neutrophils % 86 % (35-66) Band Neutrophils % 2 % (0-9) Lymphocytes % 7 % (24-48) Monocytes % 2 % (0-10) Eosinophils % 1 % (0-5) Basophils % 1 % (0-3) Myelocytes % 1 % (0-0) Platelet Estimate Adequate (ADEQUATE) Sodium Level 146 mmol/L (136-145) 142 mmol/L (136-145) Potassium Level 4.3 mmol/L (3.5-5.1) 4.7 mmol/L (3.5-5.1) Chloride Level 103 mmol/L (98-107) 99 mmol/L (98-107) Carbon Dioxide Level 38 mmol/L (21-32) 36 mmol/L (21-32) Anion Gap 5 (6-14) 7 (6-14) Blood Urea Nitrogen 20 mg/dL (8-26) 19 mg/dL (8-26) Creatinine 0.9 mg/dL (0.7-1.3) 0.9 mg/dL (0.7-1.3) Estimated GFR (Cockcroft-Gault) 85.0 85.0 BUN/Creatinine Ratio 22 (6-20) 21 (6-20) Glucose Level 121 mg/dL (70-99) 144 mg/dL (70-99) Lactic Acid Level 1.2 mmol/L (0.4-2.0) Calcium Level 9.4 mg/dL (8.5-10.1) 8.9 mg/dL (8.5-10.1) Total Bilirubin 1.2 mg/dL (0.2-1.0) 1.1 mg/dL (0.2-1.0) Aspartate Amino Transf (AST/SGOT) 26 U/L (15-37) 28 U/L (15-37) Alanine Aminotransferase (ALT/SGPT) 41 U/L (16-63) 35 U/L (16-63) Alkaline Phosphatase 106 U/L (46-116) 92 U/L (46-116) Troponin I Quantitative 0.133 ng/mL (0.000-0.055) 0.115 ng/mL (0.000-0.055) 0.097 ng/mL (0.000-0.055) UE-Jsm-Z-Type Natriuretic Peptide 2435 pg/mL (0-124) Total Protein 7.8 g/dL (6.4-8.2) 7.2 g/dL (6.4-8.2) Albumin 3.6 g/dL (3.4-5.0) 3.4 g/dL (3.4-5.0) Albumin/Globulin Ratio 0.9 (1.0-1.7) 0.9 (1.0-1.7) Influenza Type A Antigen Negative (NEGATIVE) Influenza Type B Antigen Negative (NEGATIVE) Magnesium Level 2.0 mg/dL (1.8-2.4) Triglycerides Level 39 mg/dL (0-150) Cholesterol Level 127 mg/dL (0-200) LDL Cholesterol, Calculated 59 mg/dL (0-100) VLDL Cholesterol, Calculated 8 mg/dL (0-40) Non-HDL Cholesterol Calculated 67 mg/dL (0-129) HDL Cholesterol 60 mg/dL (40-60) Cholesterol/HDL Ratio 2.1 Thyroid Stimulating Hormone (TSH) 0.470 uIU/mL (0.358-3.74) Medications Active Scripts Medications Dose Route/Sig Max Daily Dose Days Date Category Ibuprofen 800 Mg Tablet 800 Mg PO PRN Q6HRS PRN 06/21/18 Reported Vitamin C (Ascorbic Acid) 500 Mg Capsule 1,000 Mg PO DAILY 06/21/18 Reported Multivitamins (Multivitamin) 1 Each Tablet 1 Tab PO DAILY 06/21/18 Reported Fish Oil 1,000 Mg Capsule ([place]-3 Fatty Acids/Fish Oil) 1 Each Capsule 1 Each PO DAILY 06/21/18 Reported Guaifenesin 600 Mg Tablet.er 600 Mg PO BID 06/21/18 Reported Flonase Allergy Relief (Fluticasone Propionate) 9.9 Ml [place].susp 2 Sprays NS DAILY 12/23/15 Reported Chantix (Varenicline Tartrate) 1 Mg Tablet 1 Mg PO BID 12/23/15 Reported Cialis (Tadalafil) 5 Mg Tablet 1 Tab PO DAILY 12/23/15 Reported Lotrisone Cream (Clotrimazole/Betamethasone Dip) 15 Gm Cream..g. 1 Becky TP BID 12/23/15 Reported Proair Hfa Inhaler (Albuterol Sulfate) 8.5 Gm Hfa.aer.ad 1 Puff INH PRN Q6HRS PRN 12/23/15 Reported Zyrtec (Cetirizine Hcl) 10 Mg Tablet 1 Tab PO DAILY 12/23/15 Reported Montelukast Sodium Tablet (Montelukast Sodium) 10 Mg Tablet 1 Tab PO DAILY 12/23/15 Reported Amlodipine Besylate 5 Mg Tablet 5 Mg PO DAILY 12/23/15 Reported Impression . FULL NOTE DICTATED THANKS CATRACHITO SHIRLEY MD Jun 22, 2018 15:29
[2018-06-22] MEDS: predniSONE 20 MG TABLET PO SCH (16:10)
[2018-06-22 19:00] VITALS: BP 114/74
[2018-06-22] MEDS: ENOXAPARIN 40 MG/0.4 ML SYRINGE. SQ SCH (22:29)
[2018-06-22] MEDS: MONTELUKAST SODIUM 10 MG TABLET. PO SCH (22:29)
[2018-06-22 23:00] VITALS: BP 101/77
[2018-06-23 00:12] LABS: HEMOGLOBIN A1C 6.4 % (4.8-5.6)
[2018-06-23 03:00] VITALS: BP 115/82
[2018-06-23 05:09] LABS: BASO % 0 % (0-3); EOS % 0 % (0-3); HEMATOCRIT 45.2 % (39.0-53.0); HEMOGLOBIN 14.5 g/dL (13.0-17.5); LYMPH # 0.7 x10^3/uL (1.0-4.8); LYMPH % 8 % (24-48); MEAN CORPUSCULAR HEMOGLOBIN 31 pg (25-35); MEAN CORPUSCULAR HGB CONC 32 g/dL (31-37); MEAN CORPUSCULAR VOLUME 98 fL (79-100); MONO # 0.7 x10^3/uL (0.0-1.1); MONO % 8 % (0-9); NEUT # 7.4 x10^3uL (1.8-7.7); NEUT % 84 % (31-73); PLATELET COUNT 280 x10^3/uL (140-400); RED BLOOD COUNT 4.63 x10^6/uL (4.30-5.70); WHITE BLOOD COUNT 8.8 x10^3/uL (4.0-11.0)
--- NOTE | 2018-06-23 05:30 | CONS ---
DATE OF CONSULTATION: 06/22/2018 ATTENDING PHYSICIAN: Homero Merchant M.D. CONSULTING PHYSICIAN: Catrachito Shirley M.D. REASON FOR CONSULTATION: The patient seen in Pulmonary consultation at the request of Dr. Merchant for abnormal x-ray, increasing shortness of breath. HISTORY OF PRESENT ILLNESS: The patient is a 63-year-old male who smokes apparently, quit a month ago; uses Spiriva at home; increasing shortness of breath over the last 2-3 weeks. He normally does not see a physician. He has not seen Dr. Merchant for several years. He was found to have O2 saturation in the Emergency Room at 70%. He was placed on oxygen. He is currently on BiPAP. He reports no fever, chills or night sweats. No hemoptysis. I reviewed his x-ray, which revealed evidence of vascular congestion. His V/Q scan of the lower extremities revealed no evidence of DVT. His white count was not elevated. Influenza screen was negative. His BNP was elevated. His echocardiogram revealed ejection fraction of 55%, pulmonary artery pressure was elevated. The patient has a cough productive of discolored sputum. PAST MEDICAL HISTORY: 1. Tobacco dependence, apparently in remission for the past month. 2. COPD, normally uses Spiriva, apparently he gets Spiriva from [place]. 3. Hypertension. 4. Prior history of skin fungal infection. 5. No history of coronary artery disease. PAST SURGICAL HISTORY: No recent major surgeries. ALLERGIES: No known drug allergies. 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 Quit tobacco a month ago. No history of alcoholism. FAMILY HISTORY: Noncontributory. REVIEW OF SYSTEMS: As indicated above, otherwise, a 10-point system was reviewed and negative. PHYSICAL EXAMINATION: VITAL SIGNS: Stable. O2 saturation greater than 92% and currently on BiPAP. HEENT: Eyes, the sclerae were nonicteric. NECK: Jugular venous distention could not be assessed secondary to body habitus. CHEST: Full expansion. LUNGS: Crackles throughout both lung barr. CARDIOVASCULAR: Regular rate and rhythm with S1 and S2. No S3. ABDOMEN: Soft, nontender and nondistended. EXTREMITIES: No clubbing or cyanosis. Minimal edema. NEUROLOGICAL: The patient was awake, alert and following commands. A detailed neuro exam was not performed. LABORATORY DATA: Chest x-ray and labs as indicated above. IMPRESSION: 1. Acute hypoxemic respiratory failure. 2. Mfylf-cw-qygsbhc diastolic heart failure. 3. Acute exacerbation of chronic obstructive pulmonary disease. 4. Suspect obstructive sleep apnea. 5. Secondary pulmonary hypertension. 6. Tobacco dependence, in remission. 7. Suspect severe chronic obstructive pulmonary disease. 8. Noncompliance with previous followup with Dr. Merchant. PLAN: 1. Continue current support with BiPAP. The patient currently on 08/10 with a rate of 12, FiO2 was at 35% and he started off on 40%. 2. Diurese. 3. Consult Cardiology, already performed. Follow their recommendation. 4. Outpatient polysomnogram. 5. The patient instructed on the importance of discontinuing tobacco use. 6. Steroids. 7. No need for antibiotics. I do appreciate the privilege in sharing in the patient's care. CATRACHITO SHIRLEY MD DR: RYAN/clifford JOB#: [id number] / [id number]
[2018-06-23 05:45] LABS: ALBUMIN/GLOBULIN RATIO 0.8 (1.0-1.7); CALCIUM 8.7 mg/dL (8.5-10.1); CREATININE 1.1 mg/dL (0.7-1.3); GFR 67.4; MAGNESIUM 1.9 mg/dL (1.8-2.4); POTASSIUM 4.1 mmol/L (3.5-5.1); TOTAL BILIRUBIN 0.6 mg/dL (0.2-1.0); TOTAL PROTEIN 6.9 g/dL (6.4-8.2)
[2018-06-23 07:00] VITALS: BP 94/54
[2018-06-23] MEDS: IPRATRPIUM/ALBUTEROL 0.5/2.5MG 3 ML NEBU. NEB SCH ×4 (07:42→19:29)
--- NOTE | 2018-06-23 07:51 | NUR ---
Patient sitting at bedside visiting with and drinking coffee, in no respiratory distress, but oxygen saturation 86% on 3 liters O2 per NC. Oxygen increased to 4 liters without change in oxygen saturation. RT call for breathing treatment, patient now 93% on 4 liters O2 per NC after breathing treatment. Patient blood pressure 94/52, pulse 100 sitting up, patient denies weakness, dizziness or any symptoms. Continue to monitor and notify MD. Will hold Norvasc and Lasix for now. Patient and verb. understanding POC.
[2018-06-23] MEDS: FLUTICASONE 50MCG/NASAL SPRAY 16GM BOTTLE. NS SCH (08:44)
[2018-06-23] MEDS: MULTIVITAMIN with MINERAL TABLET. PO SCH (08:44)
[2018-06-23] MEDS: predniSONE 20 MG TABLET PO SCH (08:44)
[2018-06-23] MEDS: CETIRIZINE HCL 10 MG TABLET. PO SCH (08:45)
[2018-06-23] MEDS: NYSTATIN TOPICAL POWDER 15GM BOTTLE. TP SCH ×2 (08:45→20:50)
[2018-06-23] MEDS: ASPIRIN ENTERIC COATED 81 MG TABLET.DR. PO SCH (08:45)
[2018-06-23] MEDS: FLUCONAZOLE 100 MG TABLET. PO SCH (08:49)
[2018-06-23] MEDS: amLODIPine BESYLATE 5 MG TABLET PO SCH (09:00)
[2018-06-23] MEDS: FUROSEMIDE 40 MG/4 ML VIAL. IVP SCH ×2 (09:00→13:16)
--- NOTE | 2018-06-23 09:23 | PDOC ---
PULMONARY PROGRESS NOTES Subjective PT BETTER LESS SOA Vitals Vital Signs Date Time Temp Pulse Resp B/P (MAP) Pulse Ox O2 Delivery O2 Flow Rate FiO2 06/23/18 08:00 Bi-pap 4.0 06/23/18 07:50 93 06/23/18 07:00 98.1 80 19 94/54 (67) 98.1 ROS: No Nausea, No Chest Pain, No Abdominal Pain, No Increase Cough Lungs: Clear Cardiovascular: S1, S2 Abdomen: Soft Neuro Exam: Alert Extremities: No Edema Skin: Warm Labs Laboratory Tests Test 06/21/18 16:12 06/21/18 16:19 06/21/18 22:10 06/22/18 03:45 White Blood Count 9.2 x10^3/uL (4.0-11.0) 7.5 x10^3/uL (4.0-11.0) Red Blood Count 5.08 x10^6/uL (4.30-5.70) 4.96 x10^6/uL (4.30-5.70) Hemoglobin 16.1 g/dL (13.0-17.5) 15.7 g/dL (13.0-17.5) Hematocrit 50.3 % (39.0-53.0) 49.1 % (39.0-53.0) Mean Corpuscular Volume 99 fL (79-100) 99 fL (79-100) Mean Corpuscular Hemoglobin 32 pg (25-35) 32 pg (25-35) Mean Corpuscular Hemoglobin Concent 32 g/dL (31-37) 32 g/dL (31-37) Red Cell Distribution Width 15.5 % (11.5-14.5) 15.4 % (11.5-14.5) Platelet Count 260 x10^3/uL (140-400) 240 x10^3/uL (140-400) Neutrophils (%) (Auto) 87 % (31-73) 91 % (31-73) Lymphocytes (%) (Auto) 7 % (24-48) 5 % (24-48) Monocytes (%) (Auto) 5 % (0-9) 4 % (0-9) Eosinophils (%) (Auto) 0 % (0-3) 0 % (0-3) Basophils (%) (Auto) 0 % (0-3) 0 % (0-3) Neutrophils # (Auto) 8.1 x10^3uL (1.8-7.7) 6.9 x10^3uL (1.8-7.7) Lymphocytes # (Auto) 0.6 x10^3/uL (1.0-4.8) 0.4 x10^3/uL (1.0-4.8) Monocytes # (Auto) 0.5 x10^3/uL (0.0-1.1) 0.3 x10^3/uL (0.0-1.1) Eosinophils # (Auto) 0.0 x10^3/uL (0.0-0.7) 0.0 x10^3/uL (0.0-0.7) Basophils # (Auto) 0.0 x10^3/uL (0.0-0.2) 0.0 x10^3/uL (0.0-0.2) Segmented Neutrophils % 86 % (35-66) Band Neutrophils % 2 % (0-9) Lymphocytes % 7 % (24-48) Monocytes % 2 % (0-10) Eosinophils % 1 % (0-5) Basophils % 1 % (0-3) Myelocytes % 1 % (0-0) Platelet Estimate Adequate (ADEQUATE) Sodium Level 146 mmol/L (136-145) 142 mmol/L (136-145) Potassium Level 4.3 mmol/L (3.5-5.1) 4.7 mmol/L (3.5-5.1) Chloride Level 103 mmol/L (98-107) 99 mmol/L (98-107) Carbon Dioxide Level 38 mmol/L (21-32) 36 mmol/L (21-32) Anion Gap 5 (6-14) 7 (6-14) Blood Urea Nitrogen 20 mg/dL (8-26) 19 mg/dL (8-26) Creatinine 0.9 mg/dL (0.7-1.3) 0.9 mg/dL (0.7-1.3) Estimated GFR (Cockcroft-Gault) 85.0 85.0 BUN/Creatinine Ratio 22 (6-20) 21 (6-20) Glucose Level 121 mg/dL (70-99) 144 mg/dL (70-99) Lactic Acid Level 1.2 mmol/L (0.4-2.0) Calcium Level 9.4 mg/dL (8.5-10.1) 8.9 mg/dL (8.5-10.1) Total Bilirubin 1.2 mg/dL (0.2-1.0) 1.1 mg/dL (0.2-1.0) Aspartate Amino Transf (AST/SGOT) 26 U/L (15-37) 28 U/L (15-37) Alanine Aminotransferase (ALT/SGPT) 41 U/L (16-63) 35 U/L (16-63) Alkaline Phosphatase 106 U/L (46-116) 92 U/L (46-116) Troponin I Quantitative 0.133 ng/mL (0.000-0.055) 0.115 ng/mL (0.000-0.055) 0.097 ng/mL (0.000-0.055) HO-Tgv-E-Type Natriuretic Peptide 2435 pg/mL (0-124) Total Protein 7.8 g/dL (6.4-8.2) 7.2 g/dL (6.4-8.2) Albumin 3.6 g/dL (3.4-5.0) 3.4 g/dL (3.4-5.0) Albumin/Globulin Ratio 0.9 (1.0-1.7) 0.9 (1.0-1.7) Influenza Type A Antigen Negative (NEGATIVE) Influenza Type B Antigen Negative (NEGATIVE) Hemoglobin A1c 6.4 % (4.8-5.6) Magnesium Level 2.0 mg/dL (1.8-2.4) Triglycerides Level 39 mg/dL (0-150) Cholesterol Level 127 mg/dL (0-200) LDL Cholesterol, Calculated 59 mg/dL (0-100) VLDL Cholesterol, Calculated 8 mg/dL (0-40) Non-HDL Cholesterol Calculated 67 mg/dL (0-129) HDL Cholesterol 60 mg/dL (40-60) Cholesterol/HDL Ratio 2.1 Thyroid Stimulating Hormone (TSH) 0.470 uIU/mL (0.358-3.74) Test 06/23/18 04:02 White Blood Count 8.8 x10^3/uL (4.0-11.0) Red Blood Count 4.63 x10^6/uL (4.30-5.70) Hemoglobin 14.5 g/dL (13.0-17.5) Hematocrit 45.2 % (39.0-53.0) Mean Corpuscular Volume 98 fL (79-100) Mean Corpuscular Hemoglobin 31 pg (25-35) Mean Corpuscular Hemoglobin Concent 32 g/dL (31-37) Red Cell Distribution Width 15.0 % (11.5-14.5) Platelet Count 280 x10^3/uL (140-400) Neutrophils (%) (Auto) 84 % (31-73) Lymphocytes (%) (Auto) 8 % (24-48) Monocytes (%) (Auto) 8 % (0-9) Eosinophils (%) (Auto) 0 % (0-3) Basophils (%) (Auto) 0 % (0-3) Neutrophils # (Auto) 7.4 x10^3uL (1.8-7.7) Lymphocytes # (Auto) 0.7 x10^3/uL (1.0-4.8) Monocytes # (Auto) 0.7 x10^3/uL (0.0-1.1) Eosinophils # (Auto) 0.0 x10^3/uL (0.0-0.7) Basophils # (Auto) 0.0 x10^3/uL (0.0-0.2) Sodium Level 144 mmol/L (136-145) Potassium Level 4.1 mmol/L (3.5-5.1) Chloride Level 100 mmol/L (98-107) Carbon Dioxide Level 38 mmol/L (21-32) Anion Gap 6 (6-14) Blood Urea Nitrogen 29 mg/dL (8-26) Creatinine 1.1 mg/dL (0.7-1.3) Estimated GFR (Cockcroft-Gault) 67.4 BUN/Creatinine Ratio 26 (6-20) Glucose Level 80 mg/dL (70-99) Calcium Level 8.7 mg/dL (8.5-10.1) Magnesium Level 1.9 mg/dL (1.8-2.4) Total Bilirubin 0.6 mg/dL (0.2-1.0) Aspartate Amino Transf (AST/SGOT) 26 U/L (15-37) Alanine Aminotransferase (ALT/SGPT) 36 U/L (16-63) Alkaline Phosphatase 81 U/L (46-116) Total Protein 6.9 g/dL (6.4-8.2) Albumin 3.0 g/dL (3.4-5.0) Albumin/Globulin Ratio 0.8 (1.0-1.7) Laboratory Tests Test 06/23/18 04:02 White Blood Count 8.8 x10^3/uL (4.0-11.0) Red Blood Count 4.63 x10^6/uL (4.30-5.70) Hemoglobin 14.5 g/dL (13.0-17.5) Hematocrit 45.2 % (39.0-53.0) Mean Corpuscular Volume 98 fL (79-100) Mean Corpuscular Hemoglobin 31 pg (25-35) Mean Corpuscular Hemoglobin Concent 32 g/dL (31-37) Red Cell Distribution Width 15.0 % (11.5-14.5) Platelet Count 280 x10^3/uL (140-400) Neutrophils (%) (Auto) 84 % (31-73) Lymphocytes (%) (Auto) 8 % (24-48) Monocytes (%) (Auto) 8 % (0-9) Eosinophils (%) (Auto) 0 % (0-3) Basophils (%) (Auto) 0 % (0-3) Neutrophils # (Auto) 7.4 x10^3uL (1.8-7.7) Lymphocytes # (Auto) 0.7 x10^3/uL (1.0-4.8) Monocytes # (Auto) 0.7 x10^3/uL (0.0-1.1) Eosinophils # (Auto) 0.0 x10^3/uL (0.0-0.7) Basophils # (Auto) 0.0 x10^3/uL (0.0-0.2) Sodium Level 144 mmol/L (136-145) Potassium Level 4.1 mmol/L (3.5-5.1) Chloride Level 100 mmol/L (98-107) Carbon Dioxide Level 38 mmol/L (21-32) Anion Gap 6 (6-14) Blood Urea Nitrogen 29 mg/dL (8-26) Creatinine 1.1 mg/dL (0.7-1.3) Estimated GFR (Cockcroft-Gault) 67.4 BUN/Creatinine Ratio 26 (6-20) Glucose Level 80 mg/dL (70-99) Calcium Level 8.7 mg/dL (8.5-10.1) Magnesium Level 1.9 mg/dL (1.8-2.4) Total Bilirubin 0.6 mg/dL (0.2-1.0) Aspartate Amino Transf (AST/SGOT) 26 U/L (15-37) Alanine Aminotransferase (ALT/SGPT) 36 U/L (16-63) Alkaline Phosphatase 81 U/L (46-116) Total Protein 6.9 g/dL (6.4-8.2) Albumin 3.0 g/dL (3.4-5.0) Albumin/Globulin Ratio 0.8 (1.0-1.7) Medications Active Scripts Medications Dose Route/Sig Max Daily Dose Days Date Category Ibuprofen 800 Mg Tablet 800 Mg PO PRN Q6HRS PRN 06/21/18 Reported Vitamin C (Ascorbic Acid) 500 Mg Capsule 1,000 Mg PO DAILY 06/21/18 Reported Multivitamins (Multivitamin) 1 Each Tablet 1 Tab PO DAILY 06/21/18 Reported Fish Oil 1,000 Mg Capsule ([place]-3 Fatty Acids/Fish Oil) 1 Each Capsule 1 Each PO DAILY 06/21/18 Reported Guaifenesin 600 Mg Tablet.er 600 Mg PO BID 06/21/18 Reported Flonase Allergy Relief (Fluticasone Propionate) 9.9 Ml [place].susp 2 Sprays NS DAILY 12/23/15 Reported Chantix (Varenicline Tartrate) 1 Mg Tablet 1 Mg PO BID 12/23/15 Reported Cialis (Tadalafil) 5 Mg Tablet 1 Tab PO DAILY 12/23/15 Reported Lotrisone Cream (Clotrimazole/Betamethasone Dip) 15 Gm Cream..g. 1 Becky TP BID 12/23/15 Reported Proair Hfa Inhaler (Albuterol Sulfate) 8.5 Gm Hfa.aer.ad 1 Puff INH PRN Q6HRS PRN 12/23/15 Reported Zyrtec (Cetirizine Hcl) 10 Mg Tablet 1 Tab PO DAILY 12/23/15 Reported Montelukast Sodium Tablet (Montelukast Sodium) 10 Mg Tablet 1 Tab PO DAILY 12/23/15 Reported Amlodipine Besylate 5 Mg Tablet 5 Mg PO DAILY 12/23/15 Reported Impression . IMPRESSION: 1. Acute hypoxemic respiratory failure. 2. [id number] diastolic heart failure. 3. Acute exacerbation of chronic obstructive pulmonary disease. 4. Suspect obstructive sleep apnea. 5. Secondary pulmonary hypertension. 6. Tobacco dependence, in remission. 7. Suspect severe chronic obstructive pulmonary disease. 8. Noncompliance with previous followup with Dr. Merchant. 9. NEGATIVE VENOUS DOPPLERS <Conclusion> Technically difficult study. The left ventricualar systolic funtion is normal. The ejection fraction is estimated at 55%. There is normal LV segmental wall motion. Trace tricuspid valve regurgitation noted with an estimated PAP of 47 mmHg. There is no evidence of significant pericardial effusion. Plan . BETTER PRN BIPAP D/C TOBACCO 1. Continue current support with BiPAP. The patient currently on 08/10 with a rate of 12, FiO2 was at 35% and he started off on 40%. 2. Diurese. 3. Consult Cardiology, already performed. Follow their recommendation. 4. Outpatient polysomnogram. 5. The patient instructed on the importance of discontinuing tobacco use. 6. Steroids. 7. No need for antibiotics. CATRACHITO SHIRLEY MD Jun 23, 2018 09:23
--- NOTE | 2018-06-23 10:18 | NUR ---
D/W Dr. Merchant making rounds now, patient low BP and norvasc and IVP Lasix held per protocol, also of low oxygen saturation at beginning of shift improved with oxygen increased to 4l per NC and RT treatment.
--- NOTE | 2018-06-23 10:40 | PDOC ---
IM PROGRESS NOTES- Subjective Subjective Patient was hypoxic earlier with oxygen saturation of 85%. He does admit to some dyspnea and cough. He wants to restart Chantix. He has not been taking Chantix at home. Objective Vitals Vital Signs Date Time Temp Pulse Resp B/P (MAP) Pulse Ox O2 Delivery O2 Flow Rate FiO2 06/23/18 09:00 80 94/54 06/23/18 08:00 Bi-pap 4.0 06/23/18 07:50 93 06/23/18 07:00 98.1 19 98.1 Input & Output Intake and Output 06/23/18 07:00 Intake Total 1720 ml Output Total 1325 ml Balance 395 ml Intake Oral 1720 ml Output Urine Total 1325 ml Physical Exam Physical Exam General appearance - alert,ill appearing, and in mild distress and oriented to person, place, and time Mental Status - alert, oriented to person, place, and time, affect appropriate to mood Head - normal Chest -decreased breath sounds bilaterally with occasional rhonchi. Heart - S1 and S2 normal Abdomen - soft, nontender, nondistended, no masses or organomegaly Neurological - alert and oriented Musculoskeletal - no muscular tenderness noted Extremities - no pedal edema Skin - warm and dry Labs Laboratory Tests Test 06/21/18 16:12 06/21/18 16:19 06/21/18 22:10 06/22/18 03:45 White Blood Count 9.2 x10^3/uL (4.0-11.0) 7.5 x10^3/uL (4.0-11.0) Red Blood Count 5.08 x10^6/uL (4.30-5.70) 4.96 x10^6/uL (4.30-5.70) Hemoglobin 16.1 g/dL (13.0-17.5) 15.7 g/dL (13.0-17.5) Hematocrit 50.3 % (39.0-53.0) 49.1 % (39.0-53.0) Mean Corpuscular Volume 99 fL (79-100) 99 fL (79-100) Mean Corpuscular Hemoglobin 32 pg (25-35) 32 pg (25-35) Mean Corpuscular Hemoglobin Concent 32 g/dL (31-37) 32 g/dL (31-37) Red Cell Distribution Width 15.5 % (11.5-14.5) 15.4 % (11.5-14.5) Platelet Count 260 x10^3/uL (140-400) 240 x10^3/uL (140-400) Neutrophils (%) (Auto) 87 % (31-73) 91 % (31-73) Lymphocytes (%) (Auto) 7 % (24-48) 5 % (24-48) Monocytes (%) (Auto) 5 % (0-9) 4 % (0-9) Eosinophils (%) (Auto) 0 % (0-3) 0 % (0-3) Basophils (%) (Auto) 0 % (0-3) 0 % (0-3) Neutrophils # (Auto) 8.1 x10^3uL (1.8-7.7) 6.9 x10^3uL (1.8-7.7) Lymphocytes # (Auto) 0.6 x10^3/uL (1.0-4.8) 0.4 x10^3/uL (1.0-4.8) Monocytes # (Auto) 0.5 x10^3/uL (0.0-1.1) 0.3 x10^3/uL (0.0-1.1) Eosinophils # (Auto) 0.0 x10^3/uL (0.0-0.7) 0.0 x10^3/uL (0.0-0.7) Basophils # (Auto) 0.0 x10^3/uL (0.0-0.2) 0.0 x10^3/uL (0.0-0.2) Segmented Neutrophils % 86 % (35-66) Band Neutrophils % 2 % (0-9) Lymphocytes % 7 % (24-48) Monocytes % 2 % (0-10) Eosinophils % 1 % (0-5) Basophils % 1 % (0-3) Myelocytes % 1 % (0-0) Platelet Estimate Adequate (ADEQUATE) Sodium Level 146 mmol/L (136-145) 142 mmol/L (136-145) Potassium Level 4.3 mmol/L (3.5-5.1) 4.7 mmol/L (3.5-5.1) Chloride Level 103 mmol/L (98-107) 99 mmol/L (98-107) Carbon Dioxide Level 38 mmol/L (21-32) 36 mmol/L (21-32) Anion Gap 5 (6-14) 7 (6-14) Blood Urea Nitrogen 20 mg/dL (8-26) 19 mg/dL (8-26) Creatinine 0.9 mg/dL (0.7-1.3) 0.9 mg/dL (0.7-1.3) Estimated GFR (Cockcroft-Gault) 85.0 85.0 BUN/Creatinine Ratio 22 (6-20) 21 (6-20) Glucose Level 121 mg/dL (70-99) 144 mg/dL (70-99) Lactic Acid Level 1.2 mmol/L (0.4-2.0) Calcium Level 9.4 mg/dL (8.5-10.1) 8.9 mg/dL (8.5-10.1) Total Bilirubin 1.2 mg/dL (0.2-1.0) 1.1 mg/dL (0.2-1.0) Aspartate Amino Transf (AST/SGOT) 26 U/L (15-37) 28 U/L (15-37) Alanine Aminotransferase (ALT/SGPT) 41 U/L (16-63) 35 U/L (16-63) Alkaline Phosphatase 106 U/L (46-116) 92 U/L (46-116) Troponin I Quantitative 0.133 ng/mL (0.000-0.055) 0.115 ng/mL (0.000-0.055) 0.097 ng/mL (0.000-0.055) TN-Mfs-E-Type Natriuretic Peptide 2435 pg/mL (0-124) Total Protein 7.8 g/dL (6.4-8.2) 7.2 g/dL (6.4-8.2) Albumin 3.6 g/dL (3.4-5.0) 3.4 g/dL (3.4-5.0) Albumin/Globulin Ratio 0.9 (1.0-1.7) 0.9 (1.0-1.7) Influenza Type A Antigen Negative (NEGATIVE) Influenza Type B Antigen Negative (NEGATIVE) Hemoglobin A1c 6.4 % (4.8-5.6) Magnesium Level 2.0 mg/dL (1.8-2.4) Triglycerides Level 39 mg/dL (0-150) Cholesterol Level 127 mg/dL (0-200) LDL Cholesterol, Calculated 59 mg/dL (0-100) VLDL Cholesterol, Calculated 8 mg/dL (0-40) Non-HDL Cholesterol Calculated 67 mg/dL (0-129) HDL Cholesterol 60 mg/dL (40-60) Cholesterol/HDL Ratio 2.1 Thyroid Stimulating Hormone (TSH) 0.470 uIU/mL (0.358-3.74) Test 06/23/18 04:02 White Blood Count 8.8 x10^3/uL (4.0-11.0) Red Blood Count 4.63 x10^6/uL (4.30-5.70) Hemoglobin 14.5 g/dL (13.0-17.5) Hematocrit 45.2 % (39.0-53.0) Mean Corpuscular Volume 98 fL (79-100) Mean Corpuscular Hemoglobin 31 pg (25-35) Mean Corpuscular Hemoglobin Concent 32 g/dL (31-37) Red Cell Distribution Width 15.0 % (11.5-14.5) Platelet Count 280 x10^3/uL (140-400) Neutrophils (%) (Auto) 84 % (31-73) Lymphocytes (%) (Auto) 8 % (24-48) Monocytes (%) (Auto) 8 % (0-9) Eosinophils (%) (Auto) 0 % (0-3) Basophils (%) (Auto) 0 % (0-3) Neutrophils # (Auto) 7.4 x10^3uL (1.8-7.7) Lymphocytes # (Auto) 0.7 x10^3/uL (1.0-4.8) Monocytes # (Auto) 0.7 x10^3/uL (0.0-1.1) Eosinophils # (Auto) 0.0 x10^3/uL (0.0-0.7) Basophils # (Auto) 0.0 x10^3/uL (0.0-0.2) Sodium Level 144 mmol/L (136-145) Potassium Level 4.1 mmol/L (3.5-5.1) Chloride Level 100 mmol/L (98-107) Carbon Dioxide Level 38 mmol/L (21-32) Anion Gap 6 (6-14) Blood Urea Nitrogen 29 mg/dL (8-26) Creatinine 1.1 mg/dL (0.7-1.3) Estimated GFR (Cockcroft-Gault) 67.4 BUN/Creatinine Ratio 26 (6-20) Glucose Level 80 mg/dL (70-99) Calcium Level 8.7 mg/dL (8.5-10.1) Magnesium Level 1.9 mg/dL (1.8-2.4) Total Bilirubin 0.6 mg/dL (0.2-1.0) Aspartate Amino Transf (AST/SGOT) 26 U/L (15-37) Alanine Aminotransferase (ALT/SGPT) 36 U/L (16-63) Alkaline Phosphatase 81 U/L (46-116) Total Protein 6.9 g/dL (6.4-8.2) Albumin 3.0 g/dL (3.4-5.0) Albumin/Globulin Ratio 0.8 (1.0-1.7) Laboratory Tests Test 06/23/18 04:02 White Blood Count 8.8 x10^3/uL (4.0-11.0) Red Blood Count 4.63 x10^6/uL (4.30-5.70) Hemoglobin 14.5 g/dL (13.0-17.5) Hematocrit 45.2 % (39.0-53.0) Mean Corpuscular Volume 98 fL (79-100) Mean Corpuscular Hemoglobin 31 pg (25-35) Mean Corpuscular Hemoglobin Concent 32 g/dL (31-37) Red Cell Distribution Width 15.0 % (11.5-14.5) Platelet Count 280 x10^3/uL (140-400) Neutrophils (%) (Auto) 84 % (31-73) Lymphocytes (%) (Auto) 8 % (24-48) Monocytes (%) (Auto) 8 % (0-9) Eosinophils (%) (Auto) 0 % (0-3) Basophils (%) (Auto) 0 % (0-3) Neutrophils # (Auto) 7.4 x10^3uL (1.8-7.7) Lymphocytes # (Auto) 0.7 x10^3/uL (1.0-4.8) Monocytes # (Auto) 0.7 x10^3/uL (0.0-1.1) Eosinophils # (Auto) 0.0 x10^3/uL (0.0-0.7) Basophils # (Auto) 0.0 x10^3/uL (0.0-0.2) Sodium Level 144 mmol/L (136-145) Potassium Level 4.1 mmol/L (3.5-5.1) Chloride Level 100 mmol/L (98-107) Carbon Dioxide Level 38 mmol/L (21-32) Anion Gap 6 (6-14) Blood Urea Nitrogen 29 mg/dL (8-26) Creatinine 1.1 mg/dL (0.7-1.3) Estimated GFR (Cockcroft-Gault) 67.4 BUN/Creatinine Ratio 26 (6-20) Glucose Level 80 mg/dL (70-99) Calcium Level 8.7 mg/dL (8.5-10.1) Magnesium Level 1.9 mg/dL (1.8-2.4) Total Bilirubin 0.6 mg/dL (0.2-1.0) Aspartate Amino Transf (AST/SGOT) 26 U/L (15-37) Alanine Aminotransferase (ALT/SGPT) 36 U/L (16-63) Alkaline Phosphatase 81 U/L (46-116) Total Protein 6.9 g/dL (6.4-8.2) Albumin 3.0 g/dL (3.4-5.0) Albumin/Globulin Ratio 0.8 (1.0-1.7) Meds Current Medications Aspirin (Ecotrin) 81 mg DAILYWBKFT PO Last administered on 06/23/18at 08:45; Start 06/22/18 at 11:30 Fluconazole (Diflucan) 100 mg DAILY PO Last administered on 06/22/18at 12:02; Start 06/22/18 at 12:00; Stop 06/23/18 at 08:47; Status DC Fluconazole (Diflucan) 100 mg DAILY PO Last administered on 06/23/18at 08:49; Start 06/23/18 at 09:00 Furosemide (Lasix) 40 mg DAILY IVP Last administered on 06/22/18at 11:03; Start 06/22/18 at 11:30 Nystatin (Nystop) 1 jordan BID TP Last administered on 06/23/18at 08:45; Start 06/22 at 12:00; Stop 06/29/18 at 11:59 Prednisone (Prednisone) 30 mg DAILY PO Last administered on 06/23/18at 08:44; Start 06/22/18 at 16:00 Assessment Assessment 1. Acute hypoxic respiratory failure. 2. Acute pulmonary edema, multifactorial, likely due to acute diastolic heart failure. 3. Likely pulmonary hypertension. 4. Chronic obstructive pulmonary disease exacerbation. 5. Obesity. 6. Hypertension. 7. Mixed hyperlipidemia. 8. The patient has a skin candidiasis, which is quite extensive in both groins as well as in lower extremities and back. PLAN: Consult Dr. Guallpa for pulmonary evaluation and management, Dr. Ortega for cardiology evaluation and management. The patient is now on BiPAP. The patient was given IV Lasix in the Emergency Room. He is slowly improving. Condition and treatment discussed with the patient and his girlfriend. Start nystatin powder to be applied topically to the areas in groin and because of the extensive skin fungal infection, I will put him on oral Diflucan. Side effects including those on the heart discussed with the patient and the family. Prognosis of this patient is extremely poor. I have reiterated to him about the importance of keeping his oxygen saturation above 90% and take his medications and use CPAP regularly. For details, please review the orders. Hypotension. Staff was not able to give IV Lasix. I'll discontinue amlodipine that was also not given. Acute diastolic congestive heart failure. Echocardiogram noted and discussed with the patient and the family. Echocardiogram- Technically difficult study. The left ventricualar systolic funtion is normal. The ejection fraction is estimated at 55%. There is normal LV segmental wall motion. Trace tricuspid valve regurgitation noted with an estimated PAP of 47 mmHg. There is no evidence of significant pericardial effusion. I have advised the patient to stop smoking and I will restart Chantix. Acute hypoxic respiratory failure- O2 sat was 85%. Patient was given a breathing treatment and oxygen increased to 4 L/m. Plan Plan For more details regarding further plans, please refer to the orders. PATRICK CANTU MD Jun 23, 2018 10:40
[2018-06-23 10:51] VITALS: BP 132/83
[2018-06-23] MEDS: VARENICLINE 0.5 MG TABLET. PO SCH ×2 (11:05→20:49)
[2018-06-23] MEDS: INSULIN LISPRO 300 UNITS/3 ML INSULN.PEN. SQ SCH ×2 (11:42→16:30)
--- NOTE | 2018-06-23 13:13 | NUR ---
D/W Desi Alonzo. MEDIA JOB TITLES norvasc and lasix held this morning r/t hypotension, BP now 132/83 p P 101, to give lasix now, but continue to hold amlodipine. Patient and verb. understanding POC.
--- NOTE | 2018-06-23 13:28 | PDOC ---
JUNIOR PAEZ ENGINEERING DESIGN SUPERVISOR 06/23/18 1328: CARDIO Progress Notes Date and Time Date of Service 06/23/18 Time of Evaluation 1130 Subjective Subjective: No Chest Pain, Other (SOA improved ) Vitals Vitals Vital Signs Date Time Temp Pulse Resp B/P (MAP) Pulse Ox O2 Delivery O2 Flow Rate FiO2 06/23/18 12:19 93 Nasal Cannula 4.0 06/23/18 10:51 98.1 59 18 132/83 (99) 98.1 Weight Weight [ ] Input and Output Intake and Output Intake and Output 06/23/18 06:59 Intake Total 1720 ml Output Total 1325 ml Balance 395 ml Intake Oral 1720 ml Output Urine Total 1325 ml Laboratory Labs Laboratory Tests Test 06/23/18 04:02 06/23/18 11:23 White Blood Count 8.8 x10^3/uL (4.0-11.0) Red Blood Count 4.63 x10^6/uL (4.30-5.70) Hemoglobin 14.5 g/dL (13.0-17.5) Hematocrit 45.2 % (39.0-53.0) Mean Corpuscular Volume 98 fL (79-100) Mean Corpuscular Hemoglobin 31 pg (25-35) Mean Corpuscular Hemoglobin Concent 32 g/dL (31-37) Red Cell Distribution Width 15.0 % (11.5-14.5) Platelet Count 280 x10^3/uL (140-400) Neutrophils (%) (Auto) 84 % (31-73) Lymphocytes (%) (Auto) 8 % (24-48) Monocytes (%) (Auto) 8 % (0-9) Eosinophils (%) (Auto) 0 % (0-3) Basophils (%) (Auto) 0 % (0-3) Neutrophils # (Auto) 7.4 x10^3uL (1.8-7.7) Lymphocytes # (Auto) 0.7 x10^3/uL (1.0-4.8) Monocytes # (Auto) 0.7 x10^3/uL (0.0-1.1) Eosinophils # (Auto) 0.0 x10^3/uL (0.0-0.7) Basophils # (Auto) 0.0 x10^3/uL (0.0-0.2) Sodium Level 144 mmol/L (136-145) Potassium Level 4.1 mmol/L (3.5-5.1) Chloride Level 100 mmol/L (98-107) Carbon Dioxide Level 38 mmol/L (21-32) Anion Gap 6 (6-14) Blood Urea Nitrogen 29 mg/dL (8-26) Creatinine 1.1 mg/dL (0.7-1.3) Estimated GFR (Cockcroft-Gault) 67.4 BUN/Creatinine Ratio 26 (6-20) Glucose Level 80 mg/dL (70-99) Calcium Level 8.7 mg/dL (8.5-10.1) Magnesium Level 1.9 mg/dL (1.8-2.4) Total Bilirubin 0.6 mg/dL (0.2-1.0) Aspartate Amino Transf (AST/SGOT) 26 U/L (15-37) Alanine Aminotransferase (ALT/SGPT) 36 U/L (16-63) Alkaline Phosphatase 81 U/L (46-116) Total Protein 6.9 g/dL (6.4-8.2) Albumin 3.0 g/dL (3.4-5.0) Albumin/Globulin Ratio 0.8 (1.0-1.7) Glucose (Fingerstick) 169 mg/dL (70-99) Microbiology Micro Microbiology 06/21/18 Blood Culture - Preliminary, Resulted NO GROWTH AFTER 1 DAY Physical Exam HEENT: Neck Supple W Full Motion Chest: Symmetric LUNGS: Other (diminished throughout ) Heart: S1S2, RRR, no murmurs Abdomen: Soft N/T Extremities: Other (1+ bilateral LE edema ) Neurology: alert, oriented, follow commands Assessment Assessment 1. Acute on chronic hypoxic respiratory failure; secondary to AE COPD and a/c HF. on NC 2. Acute on chronic diastolic HF; improved with diuresis. Echo showed preserved LV function with an EF of 55% and moderate pulHTN 3. Mild troponin elevation; peak 0.133. Most probably type II, demand ischemia in the setting of acute respiratory/heart failure. CP free 4. AE COPD 5. Hypertension 6 Tobaccoism 7. Probably [place] Recommendations Continue ASA Ongoing diuresis Follow pulmonary recs Reinforced importance of medical compliance and follow up. Outpatient ischemic evaluation Outpatient sleep study BERNARD BLANDON MD 06/23/18 0584: CARDIO Progress Notes Plan Plan Patient seen and examined. Agree with above nurse practitioner note. Persistent 2+ lower ext edema. Will add an additional dose of Lasix this afternoon for continue diuresis. I discussed with him about fluid restriction to no more than 2 L. Supportive care. We'll follow-up in the office. JUNIOR PAEZ APRN Jun 23, 2018 13:28 BERNARD BLANDON MD Jun 23, 2018 18:14
[2018-06-23 15:00] VITALS: BP 113/76
[2018-06-23] MEDS ORDERED: FUROSEMIDE 40 MG/4 ML VIAL. IVP ONE (18:15)
[2018-06-23 19:00] VITALS: BP 103/58
[2018-06-23] MEDS: ENOXAPARIN 40 MG/0.4 ML SYRINGE. SQ SCH (20:49)
[2018-06-23] MEDS: MONTELUKAST SODIUM 10 MG TABLET. PO SCH (20:49)
[2018-06-23 23:00] VITALS: BP 129/82
[2018-06-24] VITALS (7 sets, daily range): BP systolic 111–139; BP diastolic 70–91
[2018-06-24 06:00] LABS: ALBUMIN 3.1 g/dL (3.4-5.0); ALBUMIN/GLOBULIN RATIO 0.8 (1.0-1.7); CALCIUM 8.8 mg/dL (8.5-10.1); CREATININE 1.1 mg/dL (0.7-1.3); GFR 67.4; POTASSIUM 3.8 mmol/L (3.5-5.1); TOTAL BILIRUBIN 0.7 mg/dL (0.2-1.0)
[2018-06-24] MEDS: IPRATRPIUM/ALBUTEROL 0.5/2.5MG 3 ML NEBU. NEB SCH ×4 (07:15→19:50)
[2018-06-24] MEDS: INSULIN LISPRO 300 UNITS/3 ML INSULN.PEN. SQ SCH ×2 (07:30→16:30)
[2018-06-24] MEDS: ASPIRIN ENTERIC COATED 81 MG TABLET.DR. PO SCH (08:47)
[2018-06-24] MEDS: FLUCONAZOLE 100 MG TABLET. PO SCH (08:48)
[2018-06-24] MEDS: VARENICLINE 0.5 MG TABLET. PO SCH ×2 (08:48→20:06)
[2018-06-24] MEDS: amLODIPine BESYLATE 5 MG TABLET PO SCH (08:48)
[2018-06-24] MEDS: CETIRIZINE HCL 10 MG TABLET. PO SCH (08:48)
[2018-06-24] MEDS: predniSONE 20 MG TABLET PO SCH (08:48)
[2018-06-24] MEDS: MULTIVITAMIN with MINERAL TABLET. PO SCH (08:48)
[2018-06-24] MEDS: FLUTICASONE 50MCG/NASAL SPRAY 16GM BOTTLE. NS SCH (08:49)
[2018-06-24] MEDS: FUROSEMIDE 40 MG/4 ML VIAL. IVP SCH (08:50)
[2018-06-24] MEDS: NYSTATIN TOPICAL POWDER 15GM BOTTLE. TP SCH ×2 (08:55→20:21)
[2018-06-24] MEDS: BENZONATATE 100 MG CAPSULE. PO SCH ×2 (11:52→20:07)
[2018-06-24] MEDS: ALPRAZolam 0.25 MG TABLET PO PRN ×2 (11:52→20:06)
[2018-06-24] MEDS: BENZOCAINE/MENTHOL LOZENGE. PO PRN (11:52)
--- NOTE | 2018-06-24 11:52 | PDOC ---
PROGRESS NOTES Subjective Subjective pt does not feel good today on BIPAP Objective Objective Vital Signs Date Time Temp Pulse Resp B/P (MAP) Pulse Ox O2 Delivery O2 Flow Rate FiO2 06/24/18 11:37 98 Nasal Cannula 4.0 06/24/18 11:00 97.7 96 22 113/73 (86) 97.7 Intake and Output 06/24/18 07:00 Intake Total 840 ml Output Total 1975 ml Balance -1135 ml Intake Oral 840 ml Output Urine Total 1975 ml # Voids 2 # Bowel Movements 1 Physical Exam Physical Exam BIPAP Abdomen: Soft, No tenderness Heart: Regular rate, Other (distant heart tones) Extremities: Other (1+ bilateral LE edema. ) General: Alert, Oriented X3, Cooperative, No acute distress HEENT: Atraumatic, Mucous membr. moist/pink Lungs: Clear to auscultation, Other (diminished throughout. Fine bibasilar crackles; on BiPAP) MUSCULOSKELETAL: Osteoarthritic changes both hands Neuro: Normal speech, Sensation intact Psych/Mental Status: Mental status NL, Mood NL Skin: Other (Bilateral LE erythema ?psoriasis) Assessment Assessment IMP1. Acute hypoxic respiratory failure. 2. Acute pulmonary edema, multifactorial, likely due to acute diastolic heart failure. 3. Likely pulmonary hypertension. 4. Chronic obstructive pulmonary disease exacerbation. 5. Obesity. 6. Hypertension. 7. Mixed hyperlipidemia. 8. The patient has a skin candidiasis, which is quite extensive in both groins as well as in lower extremities and back. PLAN: BIPAP ECHO diastolic heart failure xanax for anxiety iv lasix+steroids. Consult Dr. Guallpa for pulmonary evaluation and management, Dr. Ortega for cardiology evaluation and management. Comment Review of Relevant I have reviewed the following items yusef (where applicable) has been applied. Labs Laboratory Tests Test 06/23/18 16:16 06/23/18 20:16 06/24/18 04:30 06/24/18 06:52 Glucose (Fingerstick) 113 mg/dL (70-99) 168 mg/dL (70-99) 76 mg/dL (70-99) Sodium Level 142 mmol/L (136-145) Potassium Level 3.8 mmol/L (3.5-5.1) Chloride Level 100 mmol/L (98-107) Carbon Dioxide Level 35 mmol/L (21-32) Anion Gap 7 (6-14) Blood Urea Nitrogen 30 mg/dL (8-26) Creatinine 1.1 mg/dL (0.7-1.3) Estimated GFR (Cockcroft-Gault) 67.4 BUN/Creatinine Ratio 27 (6-20) Glucose Level 104 mg/dL (70-99) Calcium Level 8.8 mg/dL (8.5-10.1) Total Bilirubin 0.7 mg/dL (0.2-1.0) Aspartate Amino Transf (AST/SGOT) 26 U/L (15-37) Alanine Aminotransferase (ALT/SGPT) 40 U/L (16-63) Alkaline Phosphatase 84 U/L (46-116) Total Protein 7.0 g/dL (6.4-8.2) Albumin 3.1 g/dL (3.4-5.0) Albumin/Globulin Ratio 0.8 (1.0-1.7) Test 06/24/18 11:34 Glucose (Fingerstick) 200 mg/dL (70-99) Microbiology 06/21/18 Blood Culture - Preliminary, Resulted NO GROWTH AFTER 2 DAYS Medications Current Medications Alprazolam (Xanax) 0.25 mg PRN Q8HRS PRN PO ANXIETY / AGITATION; Start 06/24/18 at 11:45 Benzonatate (Tessalon Perle) 100 mg TID PO ; Start 06/24/18 at 12:00 Furosemide (Lasix) 40 mg 1X ONCE IVP Last administered on 06/23/18at 19:02; Start 06/23/18 at 18:15; Stop 06/23/18 at 18:16; Status DC Throat Lozenges (Cepacol Sore Throat Lozenge) 1 vito PRN Q2HRS PRN PO SORE THROAT; Start 06/24/18 at 11:45 Vitals/I & O Vital Sign - Last 24 Hours 06/23/18 06/23/18 06/23/18 06/23/18 12:19 15:00 15:28 19:00 Temp 98.2 98.0 98.2 98.0 Pulse 87 102 Resp 18 16 B/P (MAP) 113/76 (88) 103/58 (73) Pulse Ox 93 97 93 93 O2 Delivery Nasal Cannula BiPAP/CPAP Nasal Cannula BiPAP/CPAP O2 Flow Rate 4.0 4.0 4.0 06/23/18 06/23/18 06/23/18 06/23/18 19:30 19:33 23:00 23:14 Temp 98.3 98.3 Pulse 100 Resp 20 B/P (MAP) 129/82 (98) Pulse Ox 91 94 O2 Delivery Nasal Cannula BiPAP/CPAP BiPAP/CPAP BiPAP/CPAP O2 Flow Rate 4.0 4.0 06/24/18 06/24/18 06/24/18 06/24/18 03:00 07:00 07:27 07:29 Temp 98.3 98.3 98.3 98.3 98.3 98.3 Pulse 99 57 96 Resp 18 17 22 B/P (MAP) 123/82 (96) 135/74 (94) 139/91 (107) Pulse Ox 95 97 98 91 O2 Delivery Nasal Cannula Nasal Cannula Nasal Cannula Nasal Cannula O2 Flow Rate 4.0 4.0 4.0 4.0 06/24/18 06/24/18 06/24/18 06/24/18 08:00 08:48 11:00 11:37 Temp 97.7 97.7 Pulse 96 96 Resp 22 B/P (MAP) 139/91 113/73 (86) Pulse Ox 93 98 O2 Delivery Nasal Cannula Nasal Cannula Nasal Cannula O2 Flow Rate 4.0 4.0 4.0 Intake and Output 06/23/18 06/23/18 06/24/18 15:00 23:00 07:00 Intake Total 360 ml 180 ml 300 ml Output Total 1650 ml 325 ml Balance 360 ml -1470 ml -25 ml JAZMINE SILVERMAN MD Jun 24, 2018 11:52
--- NOTE | 2018-06-24 13:02 | PDOC ---
PROGRESS NOTES Subjective Subjective Patient seen and examined Objective Objective Vital Signs Date Time Temp Pulse Resp B/P (MAP) Pulse Ox O2 Delivery O2 Flow Rate FiO2 06/24/18 11:37 98 Nasal Cannula 4.0 06/24/18 11:00 97.7 96 22 113/73 (86) 97.7 Intake and Output 06/24/18 07:00 Intake Total 840 ml Output Total 1975 ml Balance -1135 ml Intake Oral 840 ml Output Urine Total 1975 ml # Voids 2 # Bowel Movements 1 Physical Exam Abdomen: Normal bowel sounds Heart: Other (mild tachycardia) General: mild distress Lungs: Other (decreased breath sounds) Assessment Assessment 1. Acute on chronic hypoxic respiratory failure; secondary to AE COPD and a/c HF. on NC. Continuing pulmonary treatments and followed by the pulmonary service. 2. Acute on chronic diastolic HF; mildly improved with diuresis. Echo showed preserved LV function with an EF of 55% and moderate pulHTN 3. Mild troponin elevation; peak 0.133. Demand ischemia in the setting of acute respiratory/heart failure. CP free 4. AE COPD. continue medical treatment. Followed by the pulmonary service. 5. Hypertension. Continuing treatment. 6 Tobaccoism 7. Probably [place] Comment Review of Relevant I have reviewed the following items yusef (where applicable) has been applied. Labs Laboratory Tests Test 06/23/18 04:02 06/23/18 11:23 06/23/18 16:16 06/23/18 20:16 White Blood Count 8.8 x10^3/uL (4.0-11.0) Red Blood Count 4.63 x10^6/uL (4.30-5.70) Hemoglobin 14.5 g/dL (13.0-17.5) Hematocrit 45.2 % (39.0-53.0) Mean Corpuscular Volume 98 fL (79-100) Mean Corpuscular Hemoglobin 31 pg (25-35) Mean Corpuscular Hemoglobin Concent 32 g/dL (31-37) Red Cell Distribution Width 15.0 % (11.5-14.5) Platelet Count 280 x10^3/uL (140-400) Neutrophils (%) (Auto) 84 % (31-73) Lymphocytes (%) (Auto) 8 % (24-48) Monocytes (%) (Auto) 8 % (0-9) Eosinophils (%) (Auto) 0 % (0-3) Basophils (%) (Auto) 0 % (0-3) Neutrophils # (Auto) 7.4 x10^3uL (1.8-7.7) Lymphocytes # (Auto) 0.7 x10^3/uL (1.0-4.8) Monocytes # (Auto) 0.7 x10^3/uL (0.0-1.1) Eosinophils # (Auto) 0.0 x10^3/uL (0.0-0.7) Basophils # (Auto) 0.0 x10^3/uL (0.0-0.2) Sodium Level 144 mmol/L (136-145) Potassium Level 4.1 mmol/L (3.5-5.1) Chloride Level 100 mmol/L (98-107) Carbon Dioxide Level 38 mmol/L (21-32) Anion Gap 6 (6-14) Blood Urea Nitrogen 29 mg/dL (8-26) Creatinine 1.1 mg/dL (0.7-1.3) Estimated GFR (Cockcroft-Gault) 67.4 BUN/Creatinine Ratio 26 (6-20) Glucose Level 80 mg/dL (70-99) Calcium Level 8.7 mg/dL (8.5-10.1) Magnesium Level 1.9 mg/dL (1.8-2.4) Total Bilirubin 0.6 mg/dL (0.2-1.0) Aspartate Amino Transf (AST/SGOT) 26 U/L (15-37) Alanine Aminotransferase (ALT/SGPT) 36 U/L (16-63) Alkaline Phosphatase 81 U/L (46-116) Total Protein 6.9 g/dL (6.4-8.2) Albumin 3.0 g/dL (3.4-5.0) Albumin/Globulin Ratio 0.8 (1.0-1.7) Glucose (Fingerstick) 169 mg/dL (70-99) 113 mg/dL (70-99) 168 mg/dL (70-99) Test 06/24/18 04:30 06/24/18 06:52 06/24/18 11:34 Sodium Level 142 mmol/L (136-145) Potassium Level 3.8 mmol/L (3.5-5.1) Chloride Level 100 mmol/L (98-107) Carbon Dioxide Level 35 mmol/L (21-32) Anion Gap 7 (6-14) Blood Urea Nitrogen 30 mg/dL (8-26) Creatinine 1.1 mg/dL (0.7-1.3) Estimated GFR (Cockcroft-Gault) 67.4 BUN/Creatinine Ratio 27 (6-20) Glucose Level 104 mg/dL (70-99) Calcium Level 8.8 mg/dL (8.5-10.1) Total Bilirubin 0.7 mg/dL (0.2-1.0) Aspartate Amino Transf (AST/SGOT) 26 U/L (15-37) Alanine Aminotransferase (ALT/SGPT) 40 U/L (16-63) Alkaline Phosphatase 84 U/L (46-116) Total Protein 7.0 g/dL (6.4-8.2) Albumin 3.1 g/dL (3.4-5.0) Albumin/Globulin Ratio 0.8 (1.0-1.7) Glucose (Fingerstick) 76 mg/dL (70-99) 200 mg/dL (70-99) Laboratory Tests Test 06/23/18 16:16 06/23/18 20:16 06/24/18 04:30 06/24/18 06:52 Glucose (Fingerstick) 113 mg/dL (70-99) 168 mg/dL (70-99) 76 mg/dL (70-99) Sodium Level 142 mmol/L (136-145) Potassium Level 3.8 mmol/L (3.5-5.1) Chloride Level 100 mmol/L (98-107) Carbon Dioxide Level 35 mmol/L (21-32) Anion Gap 7 (6-14) Blood Urea Nitrogen 30 mg/dL (8-26) Creatinine 1.1 mg/dL (0.7-1.3) Estimated GFR (Cockcroft-Gault) 67.4 BUN/Creatinine Ratio 27 (6-20) Glucose Level 104 mg/dL (70-99) Calcium Level 8.8 mg/dL (8.5-10.1) Total Bilirubin 0.7 mg/dL (0.2-1.0) Aspartate Amino Transf (AST/SGOT) 26 U/L (15-37) Alanine Aminotransferase (ALT/SGPT) 40 U/L (16-63) Alkaline Phosphatase 84 U/L (46-116) Total Protein 7.0 g/dL (6.4-8.2) Albumin 3.1 g/dL (3.4-5.0) Albumin/Globulin Ratio 0.8 (1.0-1.7) Test 06/24/18 11:34 Glucose (Fingerstick) 200 mg/dL (70-99) Microbiology 06/21/18 Blood Culture - Preliminary, Resulted NO GROWTH AFTER 2 DAYS Medications Current Medications Albuterol/ Ipratropium (Duoneb) 9 ml 1X ONCE NEB Last administered on at 16:16; Start 06/21/18 at 16:15; Stop 06/21/18 at 16:38; Status DC Methylprednisolone Sodium Succinate (SOLU-Medrol 125MG VIAL) 125 mg 1X ONCE IV Last administered on 06/21/18at 16:44; Start 06/21/18 at 16:15; Stop 06/21/18 at 16:38; Status DC Furosemide (Lasix) 80 mg 1X ONCE IVP ; Start 06/21/18 at 17:15; Stop 06/21/18 at 17:16; Status Cancel Furosemide (Lasix) 80 mg 1X ONCE IVP Last administered on 06/21/18at 20:05; Start 06/21/18 at 20:00; Stop 06/21/18 at 20:01; Status DC Albuterol/ Ipratropium (Duoneb) 3 ml RTQID NEB Last administered on 06/24/18at 11 :36; Start 06/22/18 at 08:00 Albuterol Sulfate (Ventolin Neb Soln) 2.5 mg PRN Q4HRS PRN NEB SHORTNESS OF BREATH; Start 06/21/18 at 21:00 Enoxaparin Sodium (Lovenox 40mg Syringe) 40 mg Q24H SQ Last administered on 06/23at 20:49; Start 06/21/18 at 21:00 Amlodipine Besylate (Norvasc) 5 mg DAILY PO Last administered on 06/24/18at 08:48 ; Start 06/22/18 at 09:00 Cetirizine HCl (ZyrTEC) 10 mg DAILY PO Last administered on 06/24/18at 08:48; Start 06/22/18 at 09:00 Betamethasone/ Clotrimazole (Lotrisone) 1 becky BID TP Last administered on 08:33; Start 06/22/18 at 09:00; Stop 06/22/18 at 09:47; Status DC Guaifenesin (Mucinex) 600 mg BID PO Last administered on 06/24/18 08:48; Start 06/21/18 at 22:00 Fish Oil (Fish Oil) 1,000 mg DAILY PO Last administered on 06/22/18 08:32; Start 06/22/18 at 09:00; Stop 06/22/18 at 09:47; Status DC Ascorbic Acid (Vitamin C) 1,000 mg DAILY PO Last administered on 06/22/18 08: 32; Start 06/22/18 at 09:00; Stop 06/22/18 at 09:47; Status DC Fluticasone Propionate (Flonase) 2 spray DAILY NS Last administered on 08:49; Start 06/22/18 at 09:00 Ibuprofen (Motrin) 800 mg PRN Q6HRS PRN PO INFLAMMATION; Start 06/21/18 at 21: 30 Montelukast Sodium (Singulair) 10 mg QHS PO Last administered on 06/23/18 20:49 ; Start 06/21/18 at 22:00 Multivitamins (Thera M Plus) 1 tab DAILY PO Last administered on 06/24/18 08:48 ; Start 06/22/18 at 09:00 Varenicline (Chantix) 1 mg BID PO Last administered on 06/22/18 08:32; Start 06/21/18 at 22:00; Stop 06/22/18 at 09:47; Status DC Furosemide (Lasix) 40 mg DAILY IVP Last administered on 06/24/18 08:50; Start 06/22/18 at 11:30 Aspirin (Ecotrin) 81 mg DAILYWBKFT PO Last administered on 06/24/18 08:47; Start 06/22/18 at 11:30 Nystatin (Nystop) 1 becky BID TP Last administered on 06/24/18 08:55; Start 06/22 at 12:00; Stop 06/29/18 at 11:59 Fluconazole (Diflucan) 100 mg DAILY PO Last administered on 06/22/18 12:02; Start 06/22/18 at 12:00; Stop 06/23/18 at 08:47; Status DC Prednisone (Prednisone) 30 mg DAILY PO Last administered on 06/24/18 08:48; Start 06/22/18 at 16:00 Fluconazole (Diflucan) 100 mg DAILY PO Last administered on 06/24/18 08:48; Start 06/23/18 at 09:00 Varenicline (Chantix) 1 mg BID PO Last administered on 06/24/18 08:48; Start at 10:45 Insulin Human Lispro (HumaLOG) 0-8 UNITS BIDBFRMEAL SQ Last administered on 06/23 11:42; Start 06/23/18 at 11:00 Furosemide (Lasix) 40 mg 1X ONCE IVP Last administered on 06/23/18 19:02; Start 06/23/18 at 18:15; Stop 06/23/18 at 18:16; Status DC Alprazolam (Xanax) 0.25 mg PRN Q8HRS PRN PO ANXIETY / AGITATION Last administered on 06/24/18 11:52; Start 06/24/18 at 11:45 Benzonatate (Tessalon Perle) 100 mg TID PO Last administered on 06/24/18 11:52 ; Start 06/24/18 at 12:00 Throat Lozenges (Cepacol Sore Throat Lozenge) 1 vito PRN Q2HRS PRN PO SORE THROAT Last administered on 06/24/18 11:52; Start 06/24/18 at 11:45 Active Scripts Active Reported Ibuprofen 800 Mg Tablet 800 Mg PO PRN Q6HRS PRN Vitamin C (Ascorbic Acid) 500 Mg Capsule 1,000 Mg PO DAILY Multivitamins (Multivitamin) 1 Each Tablet 1 Tab PO DAILY Fish Oil 1,000 Mg Capsule ([place]-3 Fatty Acids/Fish Oil) 1 Each Capsule 1 Each PO DAILY Guaifenesin 600 Mg Tablet.er 600 Mg PO BID Flonase Allergy Relief (Fluticasone Propionate) 9.9 Ml [place].susp 2 Sprays NS DAILY Chantix (Varenicline Tartrate) 1 Mg Tablet 1 Mg PO BID Cialis (Tadalafil) 5 Mg Tablet 1 Tab PO DAILY Lotrisone Cream (Clotrimazole/Betamethasone Dip) 15 Gm Cream..g. 1 Becky TP BID Proair Hfa Inhaler (Albuterol Sulfate) 8.5 Gm Hfa.aer.ad 1 Puff INH PRN Q6HRS PRN Zyrtec (Cetirizine Hcl) 10 Mg Tablet 1 Tab PO DAILY Montelukast Sodium Tablet (Montelukast Sodium) 10 Mg Tablet 1 Tab PO DAILY Amlodipine Besylate 5 Mg Tablet 5 Mg PO DAILY Vitals/I & O Vital Sign - Last 24 Hours 06/23/18 06/23/18 06/23/18 06/23/18 15:00 15:28 19:00 19:30 Temp 98.2 98.0 98.2 98.0 Pulse 87 102 Resp 18 16 B/P (MAP) 113/76 (88) 103/58 (73) Pulse Ox 97 93 93 O2 Delivery BiPAP/CPAP Nasal Cannula BiPAP/CPAP Nasal Cannula O2 Flow Rate 4.0 4.0 4.0 06/23/18 06/23/18 06/23/18 06/24/18 19:33 23:00 23:14 03:00 Temp 98.3 98.3 98.3 98.3 Pulse 100 99 Resp 20 18 B/P (MAP) 129/82 (98) 123/82 (96) Pulse Ox 91 94 95 O2 Delivery BiPAP/CPAP BiPAP/CPAP BiPAP/CPAP Nasal Cannula O2 Flow Rate 4.0 4.0 06/24/18 06/24/18 06/24/18 06/24/18 07:00 07:27 07:29 08:00 Temp 98.3 98.3 98.3 98.3 Pulse 57 96 Resp 17 22 B/P (MAP) 135/74 (94) 139/91 (107) Pulse Ox 97 98 91 O2 Delivery Nasal Cannula Nasal Cannula Nasal Cannula Nasal Cannula O2 Flow Rate 4.0 4.0 4.0 4.0 06/24/18 06/24/18 06/24/18 08:48 11:00 11:37 Temp 97.7 97.7 Pulse 96 96 Resp 22 B/P (MAP) 139/91 113/73 (86) Pulse Ox 93 98 O2 Delivery Nasal Cannula Nasal Cannula O2 Flow Rate 4.0 4.0 Intake and Output 06/23/18 06/23/18 06/24/18 15:00 23:00 07:00 Intake Total 360 ml 180 ml 300 ml Output Total 1650 ml 325 ml Balance 360 ml -1470 ml -25 ml KIRSTIN FUCHS MD Jun 24, 2018 13:02
--- NOTE | 2018-06-24 14:28 | RAD ---
PORTABLE CHEST 1V Clinical History: CHF F/U Technique: AP view of the chest was obtained at 06/24/2018 11:46 AM. Comparison: June 21, 2018. Findings: The cardiomediastinal silhouette is normal. The pulmonary vasculature is normal. There is mild reticular opacities in the lower lungs. Impression: Mild fluid overload. This appears slightly improved. Electronically signed by: Kevin Gooden III, MD (06/24/2018 2:24 PM) [facility]
[2018-06-24] MEDS: ENOXAPARIN 40 MG/0.4 ML SYRINGE. SQ SCH (20:06)
[2018-06-24] MEDS: MONTELUKAST SODIUM 10 MG TABLET. PO SCH (20:07)
[2018-06-25] VITALS (7 sets, daily range): BP systolic 100–132; BP diastolic 74–91
--- NOTE | 2018-06-25 03:21 | NUR ---
This nurse and other staff nurse on unit has been to Patient room multiple times to remind him to put his oxygen on and or his Bi-pap back on, he wound hold on to his nasal cannula and his bi-pap and fall deep asleep with his bi-pap making beeping noises, RT Minesh came by and this nurse did alert him and he will stop by to check and re-educate Patient, is currently in room with Patient sleeping soundly through the night in recliner.
[2018-06-25 05:43] LABS: ALBUMIN 3.2 g/dL (3.4-5.0); ALBUMIN/GLOBULIN RATIO 0.7 (1.0-1.7); GFR 75.2; POTASSIUM 3.5 mmol/L (3.5-5.1); TOTAL BILIRUBIN 0.9 mg/dL (0.2-1.0); TOTAL PROTEIN 7.5 g/dL (6.4-8.2)
[2018-06-25] MEDS: INSULIN LISPRO 300 UNITS/3 ML INSULN.PEN. SQ SCH ×2 (07:30→16:30)
[2018-06-25] MEDS: IPRATRPIUM/ALBUTEROL 0.5/2.5MG 3 ML NEBU. NEB SCH ×4 (07:58→19:32)
[2018-06-25] MEDS: FLUCONAZOLE 100 MG TABLET. PO SCH (08:55)
[2018-06-25] MEDS: BENZONATATE 100 MG CAPSULE. PO SCH ×3 (08:55→21:51)
[2018-06-25] MEDS: predniSONE 20 MG TABLET PO SCH (08:55)
[2018-06-25] MEDS: MULTIVITAMIN with MINERAL TABLET. PO SCH (08:56)
[2018-06-25] MEDS: BENZOCAINE/MENTHOL LOZENGE. PO PRN ×2 (08:56→21:54)
[2018-06-25] MEDS: ASPIRIN ENTERIC COATED 81 MG TABLET.DR. PO SCH (08:57)
[2018-06-25] MEDS: CETIRIZINE HCL 10 MG TABLET. PO SCH (08:57)
[2018-06-25] MEDS: amLODIPine BESYLATE 5 MG TABLET PO SCH (08:58)
[2018-06-25] MEDS: VARENICLINE 0.5 MG TABLET. PO SCH ×2 (08:59→21:50)
[2018-06-25] MEDS: FUROSEMIDE 40 MG/4 ML VIAL. IVP SCH (08:59)
[2018-06-25] MEDS: FLUTICASONE 50MCG/NASAL SPRAY 16GM BOTTLE. NS SCH (08:59)
[2018-06-25] MEDS: NYSTATIN TOPICAL POWDER 15GM BOTTLE. TP SCH ×2 (09:00→21:50)
--- NOTE | 2018-06-25 10:39 | PDOC ---
PROGRESS NOTES Subjective Subjective feels better, off BIPAP on nasal canula Objective Objective Vital Signs Date Time Temp Pulse Resp B/P (MAP) Pulse Ox O2 Delivery O2 Flow Rate FiO2 06/25/18 08:58 86 100/91 06/25/18 08:02 91 Nasal Cannula 4.0 06/25/18 07:00 97.4 22 97.4 Intake and Output 06/25/18 07:00 Intake Total 560 ml Output Total 1300 ml Balance -740 ml Intake Oral 560 ml Output Urine Total 1300 ml # Voids 5 Physical Exam Physical Exam BIPAP Abdomen: Normal bowel sounds Heart: Other (mild tachycardia) Extremities: Other (1+ bilateral LE edema. ) General: mild distress HEENT: Atraumatic, Mucous membr. moist/pink Lungs: Other (decreased breath sounds) MUSCULOSKELETAL: Osteoarthritic changes both hands Neuro: Normal speech, Sensation intact Psych/Mental Status: Mental status NL, Mood NL Skin: Other (Bilateral LE erythema ?psoriasis) Assessment Assessment IMP: 1. Acute hypoxic respiratory failure. 2. Acute pulmonary edema, multifactorial, likely due to acute diastolic heart failure. 3. Likely pulmonary hypertension. 4. Chronic obstructive pulmonary disease exacerbation. 5. Obesity. 6. Hypertension. 7. Mixed hyperlipidemia. 8. The patient has a skin candidiasis, which is quite extensive in both groins as well as in lower extremities and back. PLAN: OFF BIPAP ,on nasal canula ECHO diastolic heart failure xanax for anxiety iv lasix 40 mg po prednisone cxr improving labs ok Consult Dr. Guallpa for pulmonary evaluation and management, Dr. Ortega for cardiology evaluation and management. Comment Review of Relevant I have reviewed the following items yusef (where applicable) has been applied. Labs Laboratory Tests Test 06/24/18 11:34 06/24/18 16:15 06/24/18 20:30 06/25/18 03:35 Glucose (Fingerstick) 200 mg/dL (70-99) 148 mg/dL (70-99) 99 mg/dL (70-99) Sodium Level 142 mmol/L (136-145) Potassium Level 3.5 mmol/L (3.5-5.1) Chloride Level 100 mmol/L (98-107) Carbon Dioxide Level 38 mmol/L (21-32) Anion Gap 4 (6-14) Blood Urea Nitrogen 26 mg/dL (8-26) Creatinine 1.0 mg/dL (0.7-1.3) Estimated GFR (Cockcroft-Gault) 75.2 BUN/Creatinine Ratio 26 (6-20) Glucose Level 103 mg/dL (70-99) Calcium Level 9.0 mg/dL (8.5-10.1) Total Bilirubin 0.9 mg/dL (0.2-1.0) Aspartate Amino Transf (AST/SGOT) 31 U/L (15-37) Alanine Aminotransferase (ALT/SGPT) 47 U/L (16-63) Alkaline Phosphatase 84 U/L (46-116) Total Protein 7.5 g/dL (6.4-8.2) Albumin 3.2 g/dL (3.4-5.0) Albumin/Globulin Ratio 0.7 (1.0-1.7) Test 06/25/18 07:08 Glucose (Fingerstick) 85 mg/dL (70-99) Microbiology 06/21/18 Blood Culture - Preliminary, Resulted NO GROWTH AFTER 3 DAYS Medications Current Medications Alprazolam (Xanax) 0.25 mg PRN Q8HRS PRN PO ANXIETY / AGITATION Last administered on 06/24/18at 20:06; Start 06/24/18 at 11:45 Benzonatate (Tessalon Perle) 100 mg TID PO Last administered on 06/25/18at 08:55 ; Start 06/24/18 at 12:00 Throat Lozenges (Cepacol Sore Throat Lozenge) 1 vito PRN Q2HRS PRN PO SORE THROAT Last administered on 06/25/18 08:56; Start 06/24/18 at 11:45 Vitals/I & O Vital Sign - Last 24 Hours 06/24/18 06/24/18 06/24/18 06/24/18 11:00 11:37 15:00 15:17 Temp 97.7 97.9 97.7 97.9 Pulse 96 90 Resp 22 20 B/P (MAP) 113/73 (86) 113/86 (95) Pulse Ox 93 98 94 92 O2 Delivery Nasal Cannula Nasal Cannula Nasal Cannula Nasal Cannula O2 Flow Rate 4.0 4.0 4.0 4.0 06/24/18 06/24/18 06/24/18 06/24/18 19:00 19:00 19:50 19:51 Temp 97.9 97.9 97.9 97.9 Pulse 90 95 Resp 20 B/P (MAP) 113/86 (95) 124/88 (100) Pulse Ox 92 90 92 O2 Delivery Nasal Cannula Room Air Nasal Cannula Nasal Cannula O2 Flow Rate 4.0 4.0 4.0 06/24/18 06/24/18 06/25/18 06/25/18 23:00 23:00 01:20 03:00 Temp 97.8 97.6 97.8 97.6 Pulse 95 92 Resp 20 20 B/P (MAP) 111/70 (84) 122/90 (101) Pulse Ox 92 90 92 98 O2 Delivery BiPAP/CPAP Nasal Cannula BiPAP/CPAP BiPAP/CPAP 06/25/18 06/25/18 06/25/18 06/25/18 03:44 05:18 07:00 08:02 Temp 97.4 97.4 Pulse 86 Resp 22 B/P (MAP) 100/91 (94) Pulse Ox 93 94 91 O2 Delivery BiPAP/CPAP BiPAP/CPAP BiPAP/CPAP Nasal Cannula O2 Flow Rate 4.0 06/25/18 08:58 Pulse 86 B/P (MAP) 100/91 Intake and Output 06/24/18 06/24/18 06/25/18 15:00 23:00 07:00 Intake Total 240 ml 320 ml Output Total 300 ml 1000 ml Balance -60 ml -680 ml JAZMINE SILVERMAN MD Jun 25, 2018 10:39
[2018-06-25] MEDS: ALPRAZolam 0.25 MG TABLET PO PRN (21:50)
[2018-06-25] MEDS: MONTELUKAST SODIUM 10 MG TABLET. PO SCH (21:50)
[2018-06-25] MEDS: IBUPROFEN 400 MG TABLET. PO PRN (21:51)
[2018-06-25] MEDS: ENOXAPARIN 40 MG/0.4 ML SYRINGE. SQ SCH (21:51)
--- NOTE | 2018-06-26 02:29 | NUR ---
Patient continues to take nasal canula and bi-pap off along with heart monitor, he is a restless deep sleeper, would have all the leads off of his chest, hold in his right fist is his nasal canula and in his left under arm is his bi-pap, both the SEAM RUBBER and this nurse enters the room and we both attempts to encourage Patient to let us help him get readjusted, Patient was having a hard time time to catch his breath, bi-pap back on, this nurse educated Patient and on the importance of keeping nasal canula or bi-pap on and spoke with RT Juanjose regarding issue so that he may also assist in re-educating Patient.
[2018-06-26 03:03] VITALS: BP 128/83
[2018-06-26 06:04] LABS: ALBUMIN/GLOBULIN RATIO 0.8 (1.0-1.7); CALCIUM 8.7 mg/dL (8.5-10.1); CREATININE 0.9 mg/dL (0.7-1.3); TOTAL BILIRUBIN 0.8 mg/dL (0.2-1.0); TOTAL PROTEIN 6.7 g/dL (6.4-8.2)
[2018-06-26] MEDS: IPRATRPIUM/ALBUTEROL 0.5/2.5MG 3 ML NEBU. NEB SCH ×4 (06:56→20:15)
[2018-06-26 07:00] VITALS: BP 116/72
[2018-06-26] MEDS: INSULIN LISPRO 300 UNITS/3 ML INSULN.PEN. SQ SCH ×2 (07:30→16:30)
[2018-06-26] MEDS: NYSTATIN TOPICAL POWDER 15GM BOTTLE. TP SCH ×2 (08:57→23:37)
[2018-06-26] MEDS: FLUTICASONE 50MCG/NASAL SPRAY 16GM BOTTLE. NS SCH (08:57)
[2018-06-26] MEDS: predniSONE 20 MG TABLET PO SCH (08:58)
[2018-06-26] MEDS: ASPIRIN ENTERIC COATED 81 MG TABLET.DR. PO SCH (08:58)
[2018-06-26] MEDS: MULTIVITAMIN with MINERAL TABLET. PO SCH (08:58)
[2018-06-26] MEDS: FLUCONAZOLE 100 MG TABLET. PO SCH (08:58)
[2018-06-26] MEDS: amLODIPine BESYLATE 5 MG TABLET PO SCH (08:58)
[2018-06-26] MEDS: VARENICLINE 0.5 MG TABLET. PO SCH ×2 (08:58→23:34)
[2018-06-26] MEDS: FUROSEMIDE 40 MG/4 ML VIAL. IVP SCH (08:58)
[2018-06-26] MEDS: BENZONATATE 100 MG CAPSULE. PO SCH ×3 (08:59→23:34)
[2018-06-26] MEDS: CETIRIZINE HCL 10 MG TABLET. PO SCH (08:59)
--- NOTE | 2018-06-26 10:05 | PDOC ---
IM PROGRESS NOTES- Subjective Subjective Patient was hypoxic earlier with oxygen saturation of 77%. He does admit to some dyspnea and cough. Overall he is feeling better. Objective Vitals Vital Signs Date Time Temp Pulse Resp B/P (MAP) Pulse Ox O2 Delivery O2 Flow Rate FiO2 06/26/18 08:58 94 116/72 06/26/18 07:00 97.6 20 90 BiPAP/CPAP 97.6 06/26/18 06:56 4.0 Input & Output Intake and Output 06/26/18 07:00 Intake Total 960 ml Output Total 4600 ml Balance -3640 ml Intake Oral 960 ml Output Urine Total 4600 ml # Bowel Movements 1 Physical Exam Physical Exam General appearance - alert,ill appearing, and in mild distress and oriented to person, place, and time Mental Status - alert, oriented to person, place, and time, affect appropriate to mood Head - normal Chest -decreased breath sounds bilaterally . Air entry is slowly improving. Heart - S1 and S2 normal Abdomen - soft, nontender, nondistended, no masses or organomegaly Neurological - alert and oriented Musculoskeletal - no muscular tenderness noted Extremities - no pedal edema Skin - warm and dry Labs Laboratory Tests Test 06/24/18 11:34 06/24/18 16:15 06/24/18 20:30 06/25/18 03:35 Glucose (Fingerstick) 200 mg/dL (70-99) 148 mg/dL (70-99) 99 mg/dL (70-99) Sodium Level 142 mmol/L (136-145) Potassium Level 3.5 mmol/L (3.5-5.1) Chloride Level 100 mmol/L (98-107) Carbon Dioxide Level 38 mmol/L (21-32) Anion Gap 4 (6-14) Blood Urea Nitrogen 26 mg/dL (8-26) Creatinine 1.0 mg/dL (0.7-1.3) Estimated GFR (Cockcroft-Gault) 75.2 BUN/Creatinine Ratio 26 (6-20) Glucose Level 103 mg/dL (70-99) Calcium Level 9.0 mg/dL (8.5-10.1) Total Bilirubin 0.9 mg/dL (0.2-1.0) Aspartate Amino Transf (AST/SGOT) 31 U/L (15-37) Alanine Aminotransferase (ALT/SGPT) 47 U/L (16-63) Alkaline Phosphatase 84 U/L (46-116) Total Protein 7.5 g/dL (6.4-8.2) Albumin 3.2 g/dL (3.4-5.0) Albumin/Globulin Ratio 0.7 (1.0-1.7) Test 06/25/18 07:08 06/25/18 11:06 06/25/18 15:22 06/25/18 20:19 Glucose (Fingerstick) 85 mg/dL (70-99) 123 mg/dL (70-99) 126 mg/dL (70-99) 151 mg/dL (70-99) Test 06/26/18 04:16 06/26/18 07:06 Sodium Level 140 mmol/L (136-145) Potassium Level 4.0 mmol/L (3.5-5.1) Chloride Level 99 mmol/L (98-107) Carbon Dioxide Level 34 mmol/L (21-32) Anion Gap 7 (6-14) Blood Urea Nitrogen 31 mg/dL (8-26) Creatinine 0.9 mg/dL (0.7-1.3) Estimated GFR (Cockcroft-Gault) 85.0 BUN/Creatinine Ratio 34 (6-20) Glucose Level 89 mg/dL (70-99) Calcium Level 8.7 mg/dL (8.5-10.1) Total Bilirubin 0.8 mg/dL (0.2-1.0) Aspartate Amino Transf (AST/SGOT) 42 U/L (15-37) Alanine Aminotransferase (ALT/SGPT) 59 U/L (16-63) Alkaline Phosphatase 83 U/L (46-116) Total Protein 6.7 g/dL (6.4-8.2) Albumin 3.0 g/dL (3.4-5.0) Albumin/Globulin Ratio 0.8 (1.0-1.7) Glucose (Fingerstick) 83 mg/dL (70-99) Laboratory Tests Test 06/25/18 11:06 06/25/18 15:22 06/25/18 20:19 06/26/18 04:16 Glucose (Fingerstick) 123 mg/dL (70-99) 126 mg/dL (70-99) 151 mg/dL (70-99) Sodium Level 140 mmol/L (136-145) Potassium Level 4.0 mmol/L (3.5-5.1) Chloride Level 99 mmol/L (98-107) Carbon Dioxide Level 34 mmol/L (21-32) Anion Gap 7 (6-14) Blood Urea Nitrogen 31 mg/dL (8-26) Creatinine 0.9 mg/dL (0.7-1.3) Estimated GFR (Cockcroft-Gault) 85.0 BUN/Creatinine Ratio 34 (6-20) Glucose Level 89 mg/dL (70-99) Calcium Level 8.7 mg/dL (8.5-10.1) Total Bilirubin 0.8 mg/dL (0.2-1.0) Aspartate Amino Transf (AST/SGOT) 42 U/L (15-37) Alanine Aminotransferase (ALT/SGPT) 59 U/L (16-63) Alkaline Phosphatase 83 U/L (46-116) Total Protein 6.7 g/dL (6.4-8.2) Albumin 3.0 g/dL (3.4-5.0) Albumin/Globulin Ratio 0.8 (1.0-1.7) Test 06/26/18 07:06 Glucose (Fingerstick) 83 mg/dL (70-99) Meds Current Medications Prednisone (Prednisone) 20 mg DAILY PO Last administered on 06/26/18at 08:58; Start 06/26/18 at 09:00 Assessment Assessment IMP: 1. Acute hypoxic respiratory failure. 2. Acute pulmonary edema, multifactorial, likely due to acute diastolic heart failure. 3. Likely pulmonary hypertension. 4. Chronic obstructive pulmonary disease exacerbation. 5. Obesity. 6. Hypertension. 7. Mixed hyperlipidemia. 8. The patient has a skin candidiasis, which is quite extensive in both groins as well as in lower extremities and back. PLAN: OFF BIPAP ,on nasal canula ECHO diastolic heart failure xanax for anxiety Acute on chronic diastolic congestive heart failure- continue IV Lasix daily. Weight recorded is incorrect. Discussed with the staff. po prednisone cxr improving Acute on chronic hypoxic respiratory failure- continue BiPAP and oxygen by nasal cannula. Patient does not have insurance. Discussed with the social sciences research scientist. We will need prescriptions from a the senior database programmer for oxygen and BiPAP and then she will find out how much it will cost. His income is more than what he would qualify for Medicaid. He will need to apply for Social Security disability. Condition treatment discussed with the patient and his girlfriend. Consult Dr. Guallpa for pulmonary evaluation and management, Dr. Ortega for cardiology evaluation and management. If stable and if arrangements can be made for home oxygen and BiPAP then we can discharge him tomorrow. Plan Plan For more details regarding further plans, please refer to the orders. PATRICK CANTU MD Jun 26, 2018 10:05
[2018-06-26 11:00] VITALS: BP 117/84
[2018-06-26 13:56] LABS: BASE EXCESS ABG 10 mmol/L (-3-3); HCO3 ABG 37 mmol/L (21-28); PCO2 ABG 59 mmHg (35-46); PO2 ABG 52 mmHg (65-108); SAT O2 ABG 88 % (92-99)
[2018-06-26 14:00] LABS: FIO2 ABG 36
[2018-06-26 15:00] VITALS: BP 119/75
--- NOTE | 2018-06-26 15:19 | NUR ---
SW following pt. Spoke with Physician regarding Bipap/02 needs and likely pt will have to pay out of pocket. SW also discussed Rx is needed after 6 min walk results. SW provided pt with a cost analysis for home 02 and informed him it would be cheaper to buy Bipap machine from a 3rd democr[employer] Website ([employer]) as [employer]yers is expensive from 02 supplier company. Pt aware he would have to provide SW with his card number so 02 supplier can have on file before tank is provided. Pt is also aware he would have to personally buy Bipap Machine as Bipap from 02 supplier (ex: [employer]) is around $2,595 and CPAP is $1726. Pt and pt's verbalized understanding.
--- NOTE | 2018-06-26 16:38 | PDOC ---
PULMONARY PROGRESS NOTES Subjective PT BETTER LESS SOA Vitals Vital Signs Date Time Temp Pulse Resp B/P (MAP) Pulse Ox O2 Delivery O2 Flow Rate FiO2 06/26/18 15:43 92 BiPAP/CPAP 06/26/18 15:00 97.7 97 20 119/75 (90) 97.7 06/26/18 11:13 4.0 ROS: No Nausea, No Chest Pain, No Abdominal Pain, No Increase Cough Lungs: Clear Cardiovascular: S1, S2 Abdomen: Soft Neuro Exam: Alert Extremities: No Edema Skin: Warm Labs Laboratory Tests Test 06/24/18 20:30 06/25/18 03:35 06/25/18 07:08 06/25/18 11:06 Glucose (Fingerstick) 99 mg/dL (70-99) 85 mg/dL (70-99) 123 mg/dL (70-99) Sodium Level 142 mmol/L (136-145) Potassium Level 3.5 mmol/L (3.5-5.1) Chloride Level 100 mmol/L (98-107) Carbon Dioxide Level 38 mmol/L (21-32) Anion Gap 4 (6-14) Blood Urea Nitrogen 26 mg/dL (8-26) Creatinine 1.0 mg/dL (0.7-1.3) Estimated GFR (Cockcroft-Gault) 75.2 BUN/Creatinine Ratio 26 (6-20) Glucose Level 103 mg/dL (70-99) Calcium Level 9.0 mg/dL (8.5-10.1) Total Bilirubin 0.9 mg/dL (0.2-1.0) Aspartate Amino Transf (AST/SGOT) 31 U/L (15-37) Alanine Aminotransferase (ALT/SGPT) 47 U/L (16-63) Alkaline Phosphatase 84 U/L (46-116) Total Protein 7.5 g/dL (6.4-8.2) Albumin 3.2 g/dL (3.4-5.0) Albumin/Globulin Ratio 0.7 (1.0-1.7) Test 06/25/18 15:22 06/25/18 20:19 06/26/18 04:16 06/26/18 07:06 Glucose (Fingerstick) 126 mg/dL (70-99) 151 mg/dL (70-99) 83 mg/dL (70-99) Sodium Level 140 mmol/L (136-145) Potassium Level 4.0 mmol/L (3.5-5.1) Chloride Level 99 mmol/L (98-107) Carbon Dioxide Level 34 mmol/L (21-32) Anion Gap 7 (6-14) Blood Urea Nitrogen 31 mg/dL (8-26) Creatinine 0.9 mg/dL (0.7-1.3) Estimated GFR (Cockcroft-Gault) 85.0 BUN/Creatinine Ratio 34 (6-20) Glucose Level 89 mg/dL (70-99) Calcium Level 8.7 mg/dL (8.5-10.1) Total Bilirubin 0.8 mg/dL (0.2-1.0) Aspartate Amino Transf (AST/SGOT) 42 U/L (15-37) Alanine Aminotransferase (ALT/SGPT) 59 U/L (16-63) Alkaline Phosphatase 83 U/L (46-116) Total Protein 6.7 g/dL (6.4-8.2) Albumin 3.0 g/dL (3.4-5.0) Albumin/Globulin Ratio 0.8 (1.0-1.7) Test 06/26/18 11:25 06/26/18 13:45 06/26/18 15:16 Glucose (Fingerstick) 103 mg/dL (70-99) 145 mg/dL (70-99) O2 Saturation 88 % (92-99) Arterial Blood pH 7.42 (7.35-7.45) Arterial Blood pCO2 at Patient Temp 59 mmHg (35-46) Arterial Blood pO2 at Patient Temp 52 mmHg (65-108) Arterial Blood HCO3 37 mmol/L (21-28) Arterial Blood Base Excess 10 mmol/L (-3-3) FiO2 36 Laboratory Tests Test 06/25/18 20:19 06/26/18 04:16 06/26/18 07:06 06/26/18 11:25 Glucose (Fingerstick) 151 mg/dL (70-99) 83 mg/dL (70-99) 103 mg/dL (70-99) Sodium Level 140 mmol/L (136-145) Potassium Level 4.0 mmol/L (3.5-5.1) Chloride Level 99 mmol/L (98-107) Carbon Dioxide Level 34 mmol/L (21-32) Anion Gap 7 (6-14) Blood Urea Nitrogen 31 mg/dL (8-26) Creatinine 0.9 mg/dL (0.7-1.3) Estimated GFR (Cockcroft-Gault) 85.0 BUN/Creatinine Ratio 34 (6-20) Glucose Level 89 mg/dL (70-99) Calcium Level 8.7 mg/dL (8.5-10.1) Total Bilirubin 0.8 mg/dL (0.2-1.0) Aspartate Amino Transf (AST/SGOT) 42 U/L (15-37) Alanine Aminotransferase (ALT/SGPT) 59 U/L (16-63) Alkaline Phosphatase 83 U/L (46-116) Total Protein 6.7 g/dL (6.4-8.2) Albumin 3.0 g/dL (3.4-5.0) Albumin/Globulin Ratio 0.8 (1.0-1.7) Test 06/26/18 13:45 06/26/18 15:16 O2 Saturation 88 % (92-99) Arterial Blood pH 7.42 (7.35-7.45) Arterial Blood pCO2 at Patient Temp 59 mmHg (35-46) Arterial Blood pO2 at Patient Temp 52 mmHg (65-108) Arterial Blood HCO3 37 mmol/L (21-28) Arterial Blood Base Excess 10 mmol/L (-3-3) FiO2 36 Glucose (Fingerstick) 145 mg/dL (70-99) Medications Active Scripts Medications Dose Route/Sig Max Daily Dose Days Date Category Ibuprofen 800 Mg Tablet 800 Mg PO PRN Q6HRS PRN 06/21/18 Reported Vitamin C (Ascorbic Acid) 500 Mg Capsule 1,000 Mg PO DAILY 06/21/18 Reported Multivitamins (Multivitamin) 1 Each Tablet 1 Tab PO DAILY 06/21/18 Reported Fish Oil 1,000 Mg Capsule ([place]-3 Fatty Acids/Fish Oil) 1 Each Capsule 1 Each PO DAILY 06/21/18 Reported Guaifenesin 600 Mg Tablet.er 600 Mg PO BID 06/21/18 Reported Flonase Allergy Relief (Fluticasone Propionate) 9.9 Ml [place].susp 2 Sprays NS DAILY 12/23/15 Reported Chantix (Varenicline Tartrate) 1 Mg Tablet 1 Mg PO BID 12/23/15 Reported Cialis (Tadalafil) 5 Mg Tablet 1 Tab PO DAILY 12/23/15 Reported Lotrisone Cream (Clotrimazole/Betamethasone Dip) 15 Gm Cream..g. 1 Becky TP BID 12/23/15 Reported Proair Hfa Inhaler (Albuterol Sulfate) 8.5 Gm Hfa.aer.ad 1 Puff INH PRN Q6HRS PRN 12/23/15 Reported Zyrtec (Cetirizine Hcl) 10 Mg Tablet 1 Tab PO DAILY 12/23/15 Reported Montelukast Sodium Tablet (Montelukast Sodium) 10 Mg Tablet 1 Tab PO DAILY 12/23/15 Reported Amlodipine Besylate 5 Mg Tablet 5 Mg PO DAILY 12/23/15 Reported Impression . IMPRESSION: 1. Acute hypoxemic respiratory failure. 2. [id number] diastolic heart failure. 3. Acute exacerbation of chronic obstructive pulmonary disease. 4. Suspect obstructive sleep apnea. 5. Secondary pulmonary hypertension. 6. Tobacco dependence, in remission. 7. Suspect severe chronic obstructive pulmonary disease. 8. Noncompliance with previous followup with Dr. Merchant. 9. NEGATIVE VENOUS DOPPLERS <Conclusion> Technically difficult study. The left ventricualar systolic funtion is normal. The ejection fraction is estimated at 55%. There is normal LV segmental wall motion. Trace tricuspid valve regurgitation noted with an estimated PAP of 47 mmHg. There is no evidence of significant pericardial effusion. Plan . ABG NOTED ADEQUATE FOR PT NO NEED FOR BIPAP WILL CHECK 6 M WALK D/C IN AM PT INSTRUCTED TO D/C TOBACCO, AVOID PROCESS FOODS AND WALK DAILY CATRACHITO SHIRLEY MD Jun 26, 2018 16:38
[2018-06-26 19:00] VITALS: BP 130/85
[2018-06-26 23:00] VITALS: BP 125/80
[2018-06-26] MEDS: ALPRAZolam 0.25 MG TABLET PO PRN (23:34)
[2018-06-26] MEDS: MONTELUKAST SODIUM 10 MG TABLET. PO SCH (23:34)
[2018-06-26] MEDS: BENZOCAINE/MENTHOL LOZENGE. PO PRN (23:35)
[2018-06-26] MEDS: IBUPROFEN 400 MG TABLET. PO PRN (23:35)
[2018-06-26] MEDS: ENOXAPARIN 40 MG/0.4 ML SYRINGE. SQ SCH (23:35)
[2018-06-27 03:00] VITALS: BP 137/92
[2018-06-27 07:00] VITALS: BP 137/93
[2018-06-27] MEDS: IPRATRPIUM/ALBUTEROL 0.5/2.5MG 3 ML NEBU. NEB SCH ×2 (07:29→11:29)
[2018-06-27] MEDS: INSULIN LISPRO 300 UNITS/3 ML INSULN.PEN. SQ SCH (07:30)
[2018-06-27 07:37] LABS: ALBUMIN 3.1 g/dL (3.4-5.0); ALBUMIN/GLOBULIN RATIO 0.9 (1.0-1.7); CALCIUM 10.1 mg/dL (8.5-10.1); CREATININE 0.9 mg/dL (0.7-1.3); POTASSIUM 4.1 mmol/L (3.5-5.1); TOTAL BILIRUBIN 0.8 mg/dL (0.2-1.0); TOTAL PROTEIN 6.7 g/dL (6.4-8.2)
[2018-06-27] MEDS: MULTIVITAMIN with MINERAL TABLET. PO SCH (08:19)
[2018-06-27] MEDS: VARENICLINE 0.5 MG TABLET. PO SCH (08:19)
[2018-06-27] MEDS: BENZONATATE 100 MG CAPSULE. PO SCH ×2 (08:19→13:50)
[2018-06-27] MEDS: CETIRIZINE HCL 10 MG TABLET. PO SCH (08:19)
[2018-06-27] MEDS: predniSONE 20 MG TABLET PO SCH (08:19)
[2018-06-27] MEDS: FUROSEMIDE 40 MG/4 ML VIAL. IVP SCH (08:20)
[2018-06-27] MEDS: ASPIRIN ENTERIC COATED 81 MG TABLET.DR. PO SCH (08:20)
[2018-06-27] MEDS: amLODIPine BESYLATE 5 MG TABLET PO SCH (08:20)
[2018-06-27] MEDS: FLUTICASONE 50MCG/NASAL SPRAY 16GM BOTTLE. NS SCH (08:20)
[2018-06-27] MEDS: FLUCONAZOLE 100 MG TABLET. PO SCH (08:20)
[2018-06-27] MEDS: NYSTATIN TOPICAL POWDER 15GM BOTTLE. TP SCH (08:21)
--- NOTE | 2018-06-27 09:15 | PDOC ---
PULMONARY PROGRESS NOTES Subjective PT BETTER LESS SOA Vitals Vital Signs Date Time Temp Pulse Resp B/P (MAP) Pulse Ox O2 Delivery O2 Flow Rate FiO2 06/27/18 08:20 92 137/93 06/27/18 07:29 92 BiPAP/CPAP 5.0 06/27/18 07:00 97.5 18 97.5 ROS: No Nausea, No Chest Pain, No Abdominal Pain, No Increase Cough Lungs: Clear Cardiovascular: S1, S2 Abdomen: Soft Neuro Exam: Alert Extremities: No Edema Skin: Warm Labs Laboratory Tests Test 06/25/18 11:06 06/25/18 15:22 06/25/18 20:19 06/26/18 04:16 Glucose (Fingerstick) 123 mg/dL (70-99) 126 mg/dL (70-99) 151 mg/dL (70-99) Sodium Level 140 mmol/L (136-145) Potassium Level 4.0 mmol/L (3.5-5.1) Chloride Level 99 mmol/L (98-107) Carbon Dioxide Level 34 mmol/L (21-32) Anion Gap 7 (6-14) Blood Urea Nitrogen 31 mg/dL (8-26) Creatinine 0.9 mg/dL (0.7-1.3) Estimated GFR (Cockcroft-Gault) 85.0 BUN/Creatinine Ratio 34 (6-20) Glucose Level 89 mg/dL (70-99) Calcium Level 8.7 mg/dL (8.5-10.1) Total Bilirubin 0.8 mg/dL (0.2-1.0) Aspartate Amino Transf (AST/SGOT) 42 U/L (15-37) Alanine Aminotransferase (ALT/SGPT) 59 U/L (16-63) Alkaline Phosphatase 83 U/L (46-116) Total Protein 6.7 g/dL (6.4-8.2) Albumin 3.0 g/dL (3.4-5.0) Albumin/Globulin Ratio 0.8 (1.0-1.7) Test 06/26/18 07:06 06/26/18 11:25 06/26/18 13:45 06/26/18 15:16 Glucose (Fingerstick) 83 mg/dL (70-99) 103 mg/dL (70-99) 145 mg/dL (70-99) O2 Saturation 88 % (92-99) Arterial Blood pH 7.42 (7.35-7.45) Arterial Blood pCO2 at Patient Temp 59 mmHg (35-46) Arterial Blood pO2 at Patient Temp 52 mmHg (65-108) Arterial Blood HCO3 37 mmol/L (21-28) Arterial Blood Base Excess 10 mmol/L (-3-3) FiO2 36 Test 06/26/18 20:25 06/27/18 07:00 06/27/18 07:25 Glucose (Fingerstick) 152 mg/dL (70-99) 88 mg/dL (70-99) Sodium Level 142 mmol/L (136-145) Potassium Level 4.1 mmol/L (3.5-5.1) Chloride Level 100 mmol/L (98-107) Carbon Dioxide Level 38 mmol/L (21-32) Anion Gap 4 (6-14) Blood Urea Nitrogen 27 mg/dL (8-26) Creatinine 0.9 mg/dL (0.7-1.3) Estimated GFR (Cockcroft-Gault) 85.0 BUN/Creatinine Ratio 30 (6-20) Glucose Level 88 mg/dL (70-99) Calcium Level 10.1 mg/dL (8.5-10.1) Total Bilirubin 0.8 mg/dL (0.2-1.0) Aspartate Amino Transf (AST/SGOT) 33 U/L (15-37) Alanine Aminotransferase (ALT/SGPT) 63 U/L (16-63) Alkaline Phosphatase 87 U/L (46-116) Total Protein 6.7 g/dL (6.4-8.2) Albumin 3.1 g/dL (3.4-5.0) Albumin/Globulin Ratio 0.9 (1.0-1.7) Laboratory Tests Test 06/26/18 11:25 06/26/18 13:45 06/26/18 15:16 06/26/18 20:25 Glucose (Fingerstick) 103 mg/dL (70-99) 145 mg/dL (70-99) 152 mg/dL (70-99) O2 Saturation 88 % (92-99) Arterial Blood pH 7.42 (7.35-7.45) Arterial Blood pCO2 at Patient Temp 59 mmHg (35-46) Arterial Blood pO2 at Patient Temp 52 mmHg (65-108) Arterial Blood HCO3 37 mmol/L (21-28) Arterial Blood Base Excess 10 mmol/L (-3-3) FiO2 36 Test 06/27/18 07:00 06/27/18 07:25 Sodium Level 142 mmol/L (136-145) Potassium Level 4.1 mmol/L (3.5-5.1) Chloride Level 100 mmol/L (98-107) Carbon Dioxide Level 38 mmol/L (21-32) Anion Gap 4 (6-14) Blood Urea Nitrogen 27 mg/dL (8-26) Creatinine 0.9 mg/dL (0.7-1.3) Estimated GFR (Cockcroft-Gault) 85.0 BUN/Creatinine Ratio 30 (6-20) Glucose Level 88 mg/dL (70-99) Calcium Level 10.1 mg/dL (8.5-10.1) Total Bilirubin 0.8 mg/dL (0.2-1.0) Aspartate Amino Transf (AST/SGOT) 33 U/L (15-37) Alanine Aminotransferase (ALT/SGPT) 63 U/L (16-63) Alkaline Phosphatase 87 U/L (46-116) Total Protein 6.7 g/dL (6.4-8.2) Albumin 3.1 g/dL (3.4-5.0) Albumin/Globulin Ratio 0.9 (1.0-1.7) Glucose (Fingerstick) 88 mg/dL (70-99) Medications Active Scripts Medications Dose Route/Sig Max Daily Dose Days Date Category Ibuprofen 800 Mg Tablet 800 Mg PO PRN Q6HRS PRN 06/21/18 Reported Vitamin C (Ascorbic Acid) 500 Mg Capsule 1,000 Mg PO DAILY 06/21/18 Reported Multivitamins (Multivitamin) 1 Each Tablet 1 Tab PO DAILY 06/21/18 Reported Fish Oil 1,000 Mg Capsule ([place]-3 Fatty Acids/Fish Oil) 1 Each Capsule 1 Each PO DAILY 06/21/18 Reported Guaifenesin 600 Mg Tablet.er 600 Mg PO BID 06/21/18 Reported Flonase Allergy Relief (Fluticasone Propionate) 9.9 Ml [place].susp 2 Sprays NS DAILY 12/23/15 Reported Chantix (Varenicline Tartrate) 1 Mg Tablet 1 Mg PO BID 12/23/15 Reported Cialis (Tadalafil) 5 Mg Tablet 1 Tab PO DAILY 12/23/15 Reported Lotrisone Cream (Clotrimazole/Betamethasone Dip) 15 Gm Cream..g. 1 Becky TP BID 12/23/15 Reported Proair Hfa Inhaler (Albuterol Sulfate) 8.5 Gm Hfa.aer.ad 1 Puff INH PRN Q6HRS PRN 12/23/15 Reported Zyrtec (Cetirizine Hcl) 10 Mg Tablet 1 Tab PO DAILY 12/23/15 Reported Montelukast Sodium Tablet (Montelukast Sodium) 10 Mg Tablet 1 Tab PO DAILY 12/23/15 Reported Amlodipine Besylate 5 Mg Tablet 5 Mg PO DAILY 12/23/15 Reported Impression . IMPRESSION: 1. Acute hypoxemic respiratory failure. 2. Wtqrw-ut-jrghsti diastolic heart failure. 3. Acute exacerbation of chronic obstructive pulmonary disease. 4. Suspect obstructive sleep apnea. 5. Secondary pulmonary hypertension. 6. Tobacco dependence, in remission. 7. Suspect severe chronic obstructive pulmonary disease. 8. Noncompliance with previous followup with Dr. Merchant. 9. NEGATIVE VENOUS DOPPLERS <Conclusion> Technically difficult study. The left ventricualar systolic funtion is normal. The ejection fraction is estimated at 55%. There is normal LV segmental wall motion. Trace tricuspid valve regurgitation noted with an estimated PAP of 47 mmHg. There is no evidence of significant pericardial effusion. Plan . ABG NOTED RX FOR 2 AT REST AND 4L 02 WITH EXERTION I THINK IF WE GIVE HIM INCREASE 02 FLOW HE WILL BECOME HYPERCAPNIC FOLLOW UP IN 4 WEEKS NO NEED FOR BIPAP PT INSTRUCTED TO D/C TOBACCO, AVOID PROCESS FOODS AND WALK DAILY CATRACHITO SHIRLEY MD Jun 27, 2018 09:15
--- NOTE | 2018-06-27 09:55 | NUR ---
Medical monitor dc per protocol.
[2018-06-27] MEDS ORDERED: NYST60PO TP (10:09)
[2018-06-27] MEDS ORDERED: FURO-68 PO (10:09)
[2018-06-27] MEDS ORDERED: Fluconazole PO (10:09)
[2018-06-27] MEDS ORDERED: PRED-220 PO (10:09)
--- NOTE | 2018-06-27 10:25 | DISCH ---
DISCHARGE INSTRUCTIONS Condition on Discharge Condition on Discharge: Stable Activity After Discharge Activity Instructions for Disc: Activity as tolerated, Avoid exertion Diet after Discharge Diet after Discharge: Cardiac Checks after Discharge Checks after discharge: Weigh Yourself Daily Contacting the [facility] after DC Call your doctor for: Concerns you may have Follow-Up Follow up with: Dr. PATRICK Cantu in 5 days Follow Up With: Dr. Guallpa Treatment/Equipment after DC Discharge Respiratory Equipmen: Oxygen (4-5 L/m. Continuous) PATRICK CANTU MD Jun 27, 2018 10:25
--- NOTE | 2018-06-27 10:32 | PDOC3 ---
IM DISCHARGE SUMMARY Date of Admission Date of Admission Date of Admission: Jun 21, 2018 at 17:17 Date of Discharge Date of Discharge June 27, 2018 Primary Diagnosis Primary Diagnosis 1. Acute hypoxic respiratory failure. 2. Acute pulmonary edema, multifactorial, likely due to acute diastolic heart failure. 3. Likely pulmonary hypertension. 4. Chronic obstructive pulmonary disease exacerbation. 5. Obesity. 6. Hypertension. 7. Mixed hyperlipidemia. 8. The patient has a skin candidiasis, which is quite extensive in both groins as well as in lower extremities and back. 9. Acute on chronic diastolic congestive heart failure 10. Obstructive sleep apnea likely Consults Consults Tirso Oliver MD, Dr. Guallpa Labs Labs Laboratory Tests Test 06/24/18 11:34 06/24/18 16:15 06/24/18 20:30 06/25/18 03:35 Glucose (Fingerstick) 200 mg/dL (70-99) 148 mg/dL (70-99) 99 mg/dL (70-99) Sodium Level 142 mmol/L (136-145) Potassium Level 3.5 mmol/L (3.5-5.1) Chloride Level 100 mmol/L (98-107) Carbon Dioxide Level 38 mmol/L (21-32) Anion Gap 4 (6-14) Blood Urea Nitrogen 26 mg/dL (8-26) Creatinine 1.0 mg/dL (0.7-1.3) Estimated GFR (Cockcroft-Gault) 75.2 BUN/Creatinine Ratio 26 (6-20) Glucose Level 103 mg/dL (70-99) Calcium Level 9.0 mg/dL (8.5-10.1) Total Bilirubin 0.9 mg/dL (0.2-1.0) Aspartate Amino Transf (AST/SGOT) 31 U/L (15-37) Alanine Aminotransferase (ALT/SGPT) 47 U/L (16-63) Alkaline Phosphatase 84 U/L (46-116) Total Protein 7.5 g/dL (6.4-8.2) Albumin 3.2 g/dL (3.4-5.0) Albumin/Globulin Ratio 0.7 (1.0-1.7) Test 06/25/18 07:08 06/25/18 11:06 06/25/18 15:22 06/25/18 20:19 Glucose (Fingerstick) 85 mg/dL (70-99) 123 mg/dL (70-99) 126 mg/dL (70-99) 151 mg/dL (70-99) Test 06/26/18 04:16 06/26/18 07:06 06/26/18 11:25 06/26/18 13:45 Sodium Level 140 mmol/L (136-145) Potassium Level 4.0 mmol/L (3.5-5.1) Chloride Level 99 mmol/L (98-107) Carbon Dioxide Level 34 mmol/L (21-32) Anion Gap 7 (6-14) Blood Urea Nitrogen 31 mg/dL (8-26) Creatinine 0.9 mg/dL (0.7-1.3) Estimated GFR (Cockcroft-Gault) 85.0 BUN/Creatinine Ratio 34 (6-20) Glucose Level 89 mg/dL (70-99) Calcium Level 8.7 mg/dL (8.5-10.1) Total Bilirubin 0.8 mg/dL (0.2-1.0) Aspartate Amino Transf (AST/SGOT) 42 U/L (15-37) Alanine Aminotransferase (ALT/SGPT) 59 U/L (16-63) Alkaline Phosphatase 83 U/L (46-116) Total Protein 6.7 g/dL (6.4-8.2) Albumin 3.0 g/dL (3.4-5.0) Albumin/Globulin Ratio 0.8 (1.0-1.7) Glucose (Fingerstick) 83 mg/dL (70-99) 103 mg/dL (70-99) O2 Saturation 88 % (92-99) Arterial Blood pH 7.42 (7.35-7.45) Arterial Blood pCO2 at Patient Temp 59 mmHg (35-46) Arterial Blood pO2 at Patient Temp 52 mmHg (65-108) Arterial Blood HCO3 37 mmol/L (21-28) Arterial Blood Base Excess 10 mmol/L (-3-3) FiO2 36 Test 06/26/18 15:16 06/26/18 20:25 06/27/18 07:00 06/27/18 07:25 Glucose (Fingerstick) 145 mg/dL (70-99) 152 mg/dL (70-99) 88 mg/dL (70-99) Sodium Level 142 mmol/L (136-145) Potassium Level 4.1 mmol/L (3.5-5.1) Chloride Level 100 mmol/L (98-107) Carbon Dioxide Level 38 mmol/L (21-32) Anion Gap 4 (6-14) Blood Urea Nitrogen 27 mg/dL (8-26) Creatinine 0.9 mg/dL (0.7-1.3) Estimated GFR (Cockcroft-Gault) 85.0 BUN/Creatinine Ratio 30 (6-20) Glucose Level 88 mg/dL (70-99) Calcium Level 10.1 mg/dL (8.5-10.1) Total Bilirubin 0.8 mg/dL (0.2-1.0) Aspartate Amino Transf (AST/SGOT) 33 U/L (15-37) Alanine Aminotransferase (ALT/SGPT) 63 U/L (16-63) Alkaline Phosphatase 87 U/L (46-116) Total Protein 6.7 g/dL (6.4-8.2) Albumin 3.1 g/dL (3.4-5.0) Albumin/Globulin Ratio 0.9 (1.0-1.7) Brief hospital course Brief hospital course This 63-year-old male who has not been seen in the office for, maybe, a couple of years, showed up in the office saying that he was much more short of breath. In the office, his O2 sats were in 70s and up to 75%. He was placed on oxygen. The patient states that he has not been using any oxygen or CPAP at home. He has not been taking any medications. I tried to send the patient to the Emergency Room via ambulance, but the patient decided to go with his girlfriend in the car. In the Emergency Room, the patient was noted to be hypoxic and chest x-ray showed acute pulmonary edema, and the patient was placed on oxygen with BiPAP and admitted for further evaluation and management. For more details regarding the past history, family history, social history, surgical history and other details, please refer to History and Physical. OFF BIPAP ,on nasal canula ECHO diastolic heart failure xanax for anxiety Acute on chronic diastolic congestive heart failure- continue IV Lasix daily. Weight recorded is incorrect. Discussed with the staff. po prednisone cxr improving Acute on chronic hypoxic respiratory failure- continue BiPAP and oxygen by nasal cannula. Patient does not have insurance. Discussed with the health and social care teacher. We will need prescriptions from a the bilingual instructor for oxygen 4-5 L/m and then she will find out how much it will cost. His income is more than what he would qualify for Medicaid. He will need to apply for Social Security disability. Condition treatment discussed with the patient and his girlfriend. Consult Dr. Guallpa for pulmonary evaluation and management, Dr. Oliver for cardiology evaluation and management. Patient responded well to BiPAP, steroids oxygen by nasal cannula and IV Lasix. He is doing better now and her per her bilingual instructor patient would not require BiPAP at home. Patient will get a 6 minute walk today and will be discharged on oxygen by nasal cannula per the bilingual instructor. Patient is on any medications at home so I have written prescriptions for all medications. Continue prednisone 10 mg daily for 7 days. We'll continue Lasix 40 mg daily in a.m. Patient is strongly advised to follow cardiac diet and fluid restriction and continue oxygen at all times. See me in the office in 5 days. Condition is improving but his long-term as well as short-term prognosis is very poor due to noncompliance. Patient does not qualify for Medicaid so I have encouraged him to consider applying for disability. Patient also has skin candidiasis and this is being treated with the oral Diflucan as well as nystatin powder and is improving. He may need the topical Chlortrimazole at a later date. COPD- patient has been advised to quit smoking and I advised him to use. For rescue inhaler. Prescribed him Chantix for 1 month but I'm not sure if he'll take it. He has been advised to stop smoking. Medications Medications reviewed and reconciled for discharge. Allergy Allergies Coded Allergies Type Severity Reaction Last Updated Verified No Known Drug Allergies 06/21/18 No Follow up in 5 days. DISPOSITION: Home Comments Discharge Management - 35 minutes. For other details please refer to discharge instructions PATRICK CANTU MD Jun 27, 2018 10:32
[2018-06-27 11:14] VITALS: BP 118/78
--- NOTE | 2018-06-27 15:14 | NUR ---
SS following up with discharge planning. Order received for oxygen. SS phoned and faxed oxygen order and clinical to [facility], ; fax [phone]. Pt provided [facility] with credit card information for payment. SS provided pt with oxygen tank for home. Pt instructed to contact [facility] when he is close to home for delivery of concentrator and equipment.
[2018-06-27 15:16] VITALS: BP 124/80
--- NOTE | 2018-06-27 15:26 | NUR ---
Discharge instructions, medications and prescriptions reviewed with patient. He verb. understanding all instructions and denies questions. Brandi SW has set up home oxygen for patient and he has tank for going home. Dr. Guallpa has OK'ed discharge and patient has prescription for home oxygen 2 liters at rest and 4 liters with activity. See orders and notes. Patient ready for discharge.
--- NOTE | 2018-06-27 15:55 | NUR ---
Patient discharge to home with spouse with all belongings, instructions, prescriptions and oxygen tank with oxygen at 2 liters per [place]. [employer] set up for home oxygen for patient. See orders and notes.
== END 2018-06-27 15:57 | disposition home or self-care (01) | DRG 291 ==
LOC: ER 15:55 → 5 NORTH 17:17
PROVIDERS: ADMIT Internal Medicine; ATTEND Internal Medicine
PROC: 5A09357 Assistance with Respiratory Ventilation, Less than 24 Consecutive Hours, Continuous Positive Airway Pressure (ICD-10-PCS; 2018-06-21)
PROC: 5A09357 Assistance with Respiratory Ventilation, Less than 24 Consecutive Hours, Continuous Positive Airway Pressure (ICD-10-PCS; 2018-06-22)
PROC: 5A09357 Assistance with Respiratory Ventilation, Less than 24 Consecutive Hours, Continuous Positive Airway Pressure (ICD-10-PCS; 2018-06-24)
PROC: 5A09357 Assistance with Respiratory Ventilation, Less than 24 Consecutive Hours, Continuous Positive Airway Pressure (ICD-10-PCS; 2018-06-26)
PROC: 5A09357 Assistance with Respiratory Ventilation, Less than 24 Consecutive Hours, Continuous Positive Airway Pressure (ICD-10-PCS; principal; 2018-06-27)
DX: I11.0 Hypertensive heart disease with heart failure (principal); J96.21 Acute and chronic respiratory failure with hypoxia; J44.1 Chronic obstructive pulmonary disease with (acute) exacerbation; I24.8 Other forms of acute ischemic heart disease; I50.33 Acute on chronic diastolic (congestive) heart failure; B36.9 Superficial mycosis, unspecified; G47.33 Obstructive sleep apnea (adult) (pediatric); E66.9 Obesity, unspecified; E78.2 Mixed hyperlipidemia; B37.2 Candidiasis of skin and nail; F17.201 Nicotine dependence, unspecified, in remission; I27.29 Other secondary pulmonary hypertension; F41.9 Anxiety disorder, unspecified; R73.03 Prediabetes; Z91.19 Patient's noncompliance with other medical treatment and regimen; Z80.1 Family history of malignant neoplasm of trachea, bronchus and lung; Z82.49 Family history of ischemic heart disease and other diseases of the circulatory system; Z82.5 Family history of asthma and other chronic lower respiratory diseases; Z79.899 Other long term (current) drug therapy
CPT/HCPCS: 36415; 36600; 71045; 80053; 80061; 82805; 82962; 83036; 83605; 83735; 83880; 84443; 84484; 85007; 85025; 87040; 87804; 93005; 93306; 93970; 94618; 94640; 94660; 94760; 96374; 99291; J1650; J1815; J1940; J2930; J7512; J7620

== ENCOUNTER → 2019-01-02 | Outpatient (CLI) | payer OTHER ==
[~2019-01-02] MED LIST changes: +ALBUTEROL SULFATE 2.5 MG/3 ML NEBU. NEB ONE; +ASCO500C9 PO; +FURO-68 PO; +Fluconazole PO; +GUAI600T79 PO; +IBUP-1060 PO; +MONT10TA49 PO; -MONT10TA9 PO; +MULT1TAB52 PO; +NYST60PO TP; +OMEG1CAP6 PO; +PRED-220 PO
== END | disposition home or self-care (01) ==
LOC: PF 08:06
PROVIDERS: ATTEND Physical Medicine & Rehabilitation
DX: Z02.71 Encounter for disability determination (principal); J44.9 Chronic obstructive pulmonary disease, unspecified
CPT/HCPCS: 94060; 94640; J7613